=== PATIENT | female | born 1960 | race Caucasian/White ===

== ENCOUNTER → 2017-10-07 07:16 | Outpatient (CLI) | payer OTHER, BC, SELFPAY | PROVIDERS: Visit Provider Internal Medicine Adolescent Medicine ==

== ENCOUNTER → 2017-10-21 07:15 | Outpatient (CLI) | payer OTHER, BC, SELFPAY ==
[2017-10-21 07:53] LABS: Basophils % 0.5 % (0.1-2.0); Eosinophils # 0.1 K/mm3 (0.0-0.4); Eosinophils % 1.1 % (0.1-12.0); Hematocrit 44.8 % (37.0-47.0); Hemoglobin 14.7 g/dL (12.2-16.2); Lymphocytes # 2.1 K/mm3 (0.7-4.5); Lymphocytes % 32.1 K/mm3 (10-50); Mean Corpuscular HGB Conc 32.9 g/dL (31.8-35.4); Mean Corpuscular Hemoglobin 30.8 pg (27.0-31.2); Mean Corpuscular Volume 93.6 fl (81-99); Mean Platelet Volume 7.8 fl (7.4-10.4); Monocytes # 0.4 K/mm3 (0.1-1.0); Monocytes % 6.8 % (1.7-9.3); Neutrophils # 3.9 K/mm3 (1.8-7.8); Neutrophils % 59.5 % (37.0-80.0); Platelet Count 237 K/mm3 (142-424); Red Blood Count 4.79 M/mm3 (4.20-5.40); Red Cell Distribution Width 13.2 % (11.5-17.5); White Blood Count 6.5 K/mm3 (4.8-10.8)
[2017-10-21 09:04] LABS: Anion Gap 9.6 mEq/L (5-15); Blood Urea Nitrogen 15 mg/dL (7-18); Carbon Dioxide 31 mmol/L (21.0-32.0); Chloride 101 mmol/L (98-107); Chol/HDL Ratio 4.2 (1-3.5); Cholesterol 194 mg/dL (140-200); Creatinine,Serum 0.77 mg/dL (0.55-1.02); Estimated Glomerular Filt Rate 77 ml/min (>60); GFR (African American) 93 ML/MIN (>60); Glucose 91 mg/dL (74-106); HDL Cholesterol 46 mg/dL (29-89); LDL Cholesterol 114 mg/dL (0-130); Potassium 3.6 mmoL/L (3.5-5.1); Sodium 138 mmol/L (136-145); Triglycerides 170 mg/dL (30-200); VLDL Cholesterol 34 mg/dL (0-40)
[2017-10-22 11:39] LABS: Vitamin D 25 Hydroxy 31.1 ng/mL (30.0-100.0)
== END ==
PROVIDERS: Visit Provider Internal Medicine Adolescent Medicine
DX: E78.5 Hyperlipidemia, unspecified (principal); E55.9 Vitamin D deficiency, unspecified; I10 Essential (primary) hypertension; R53.83 Other fatigue
CPT/HCPCS: 36415; 80048; 80061; 82652; 85025

== ENCOUNTER → 2017-11-03 09:15 | Outpatient (CLI) | payer OTHER, BC, SELFPAY ==
--- NOTE | 2017-11-03 09:19 | MM_ITS ---
MM Dig screening mamm BI w/CAD CAD Screening ORDERING PHYSICIAN : Jeancarlos Fontaine MD PATIENT AGE: 57 years GENDER: Female INDICATION: Routine screening. Does taking female hormones. No new complaints. Family history. Maternal grandmother with breast cancer age 76 COMPARISON: Previous mammograms: April 2013, 2013, June 2015, 2015 TECHNIQUE: Standard CC and MLO images were obtained. R2 CAD reviewed. FINDINGS: Mild to moderate residual fibroglandular elements in the medial retroareolar region again noted. Visualized ductal prominence likely with Slightly nodular character of such but no significant change is evident in either breast. No dominant mass nor suspicious calcifications.. No architectural distortion. But prior films are very helpful supporting that the overall patterns are stable dating back to studies from 2012. IMPRESSION: - Stable bilateral mammogram No significant new findings. Follow-up in one year recommended BI-RADS Category: 1 Negative RECOMMENDED FOLLOW-UP: 1YR - 1 YEAR FOLLOW-UP (A letter has been sent to the patient regarding results of the study.)
== END ==
PROVIDERS: Family Provider Internal Medicine Adolescent Medicine; PCP Nurse Practitioner Obstetrics & Gynecology; Visit Provider Internal Medicine Adolescent Medicine
DX: Z12.31 Encounter for screening mammogram for malignant neoplasm of breast (principal)
CPT/HCPCS: 77067

== ENCOUNTER → 2018-04-21 07:19 | Outpatient (CLI) | payer OTHER, BC, SELFPAY ==
[2018-04-21 07:35] LABS: Basophils % 0.5 % (0.1-2.0); Eosinophils # 0.1 K/mm3 (0.0-0.4); Eosinophils % 2.4 % (0.1-12.0); Hematocrit 44.3 % (37.0-47.0); Hemoglobin 14.2 g/dL (12.2-16.2); Lymphocytes # 2.7 K/mm3 (0.7-4.5); Lymphocytes % 43.9 K/mm3 (10-50); Mean Corpuscular HGB Conc 32.1 g/dL (31.8-35.4); Mean Corpuscular Hemoglobin 29.8 pg (27.0-31.2); Mean Corpuscular Volume 92.9 fl (81-99); Mean Platelet Volume 7.9 fl (7.4-10.4); Monocytes # 0.4 K/mm3 (0.1-1.0); Monocytes % 6.4 % (1.7-9.3); Neutrophils # 2.8 K/mm3 (1.8-7.8); Neutrophils % 46.8 % (37.0-80.0); Platelet Count 276 K/mm3 (142-424); Red Blood Count 4.77 M/mm3 (4.20-5.40); Red Cell Distribution Width 13.6 % (11.5-17.5)
[2018-04-21 09:42] LABS: Chol/HDL Ratio 3.8 (1-3.5); Cholesterol 202 mg/dL (140-200); HDL Cholesterol 53 mg/dL (29-89); LDL Cholesterol 127 mg/dL (0-130); Triglycerides 112 mg/dL (30-200); VLDL Cholesterol 22 mg/dL (0-40)
[2018-04-21 09:49] LABS: Alanine Aminotransferase 37 U/L (12-78); Albumin Level 4.1 gm/dL (3.4-5.0); Albumin/Globulin Ratio 1.2 (1.1-1.8); Alkaline Phosphatase 55 U/L (46-116); Anion Gap 9.6 mEq/L (5-15); Aspartate Amino Transferase 22 U/L (15-37); Bilirubin,Total 0.6 mg/dL (0.2-1.0); Blood Urea Nitrogen 14 mg/dL (7-18); Calcium 9.3 mg/dL (8.5-10.1); Carbon Dioxide 31 mmol/L (21.0-32.0); Chloride 100 mmol/L (98-107); Creatinine,Serum 0.77 mg/dL (0.55-1.02); Estimated Glomerular Filt Rate 76 ml/min (>60); GFR (African American) 93 ML/MIN (>60); Globulin 3.5 gm/dl (1.3-3.2); Glucose 89 mg/dL (74-106); Potassium 3.6 mmoL/L (3.5-5.1); Sodium 137 mmol/L (136-145); Total Protein,Serum 7.6 gm/dL (6.4-8.2)
== END ==
PROVIDERS: PCP Internal Medicine Adolescent Medicine; Visit Provider Internal Medicine Adolescent Medicine
DX: E78.5 Hyperlipidemia, unspecified (principal); E55.9 Vitamin D deficiency, unspecified
CPT/HCPCS: 36415; 80053; 80061; 82652; 85025

== ENCOUNTER → 2018-09-22 07:19 | Outpatient (CLI) | payer OTHER, BC, SELFPAY ==
[2018-09-22 08:20] LABS: Alanine Aminotransferase 36 U/L (12-78); Albumin Level 3.9 gm/dL (3.4-5.0); Albumin/Globulin Ratio 1.2 (1.1-1.8); Alkaline Phosphatase 57 U/L (46-116); Anion Gap 12.8 mEq/L (5-15); Aspartate Amino Transferase 19 U/L (15-37); Bilirubin,Total 0.6 mg/dL (0.2-1.0); Blood Urea Nitrogen 15 mg/dL (7-18); Calcium 9.3 mg/dL (8.5-10.1); Carbon Dioxide 29 mmol/L (21.0-32.0); Chloride 100 mmol/L (98-107); Chol/HDL Ratio 3.5 (1-3.5); Cholesterol 194 mg/dL (140-200); Creatinine,Serum 0.83 mg/dL (0.55-1.02); Estimated Glomerular Filt Rate 70 ml/min (>60); GFR (African American) 85 ML/MIN (>60); Globulin 3.3 gm/dl (1.3-3.2); Glucose 92 mg/dL (74-106); HDL Cholesterol 55 mg/dL (29-89); LDL Cholesterol 118 mg/dL (0-130); Potassium 3.8 mmoL/L (3.5-5.1); Sodium 138 mmol/L (136-145); Total Protein,Serum 7.2 gm/dL (6.4-8.2); Triglycerides 103 mg/dL (30-200); VLDL Cholesterol 21 mg/dL (0-40)
[2018-09-22 08:24] LABS: Basophils % 0.6 % (0.1-2.0); Eosinophils # 0.1 K/mm3 (0.0-0.4); Eosinophils % 1.8 % (0.1-12.0); Hematocrit 44.9 % (37.0-47.0); Hemoglobin 14.6 g/dL (12.2-16.2); Lymphocytes # 2.2 K/mm3 (0.7-4.5); Lymphocytes % 32.5 % (10-50); Mean Corpuscular HGB Conc 32.4 g/dL (31.8-35.4); Mean Corpuscular Hemoglobin 30.3 pg (27.0-31.2); Mean Corpuscular Volume 93.4 fl (81-99); Mean Platelet Volume 7.3 fl (7.4-10.4); Monocytes # 0.4 K/mm3 (0.1-1.0); Monocytes % 6.5 % (1.7-9.3); Neutrophils % 58.7 % (37.0-80.0); Platelet Count 246 K/mm3 (142-424); Red Blood Count 4.81 M/mm3 (4.20-5.40); Red Cell Distribution Width 13.4 % (11.5-17.5); White Blood Count 6.8 K/mm3 (4.8-10.8)
[2018-09-23 12:37] LABS: Vitamin D 25 Hydroxy 32.2 ng/mL (30.0-100.0)
== END ==
PROVIDERS: Visit Provider Internal Medicine Adolescent Medicine
DX: E78.5 Hyperlipidemia, unspecified (principal); E55.9 Vitamin D deficiency, unspecified
CPT/HCPCS: 36415; 80053; 80061; 82652; 85025

== ENCOUNTER → 2018-11-07 08:24 | Outpatient (CLI) | payer OTHER, BC, SELFPAY ==
--- NOTE | 2018-11-07 08:30 | MM_ITS ---
MM Dig screening mamm BI w/CAD CAD Screening COMPARISON: Digital mammograms with CAD 11/03/2017 and 07/10/2016 INDICATION: There is a history of breast cancer patient maternal grandmother diagnosed after menopause. TECHNIQUE: Standard CC and MLO images were obtained. R2 CAD reviewed. FINDINGS: The breasts are composed primarily of fat with minimal fibroglandular densities in the subareolar regions bilaterally. There is no new or suspicious lesion in either breast and there are no suspicious microcalcifications. IMPRESSION: Stable exam with no suspicious lesion seen BI-RADS Category: 1 Negative RECOMMENDED FOLLOW-UP: 1YR - 1 YEAR FOLLOW-UP (A letter has been sent to the patient regarding results of the study.)
== END ==
PROVIDERS: PCP Internal Medicine Adolescent Medicine; Visit Provider Internal Medicine Adolescent Medicine
DX: Z12.31 Encounter for screening mammogram for malignant neoplasm of breast (principal)
CPT/HCPCS: 77067

== ENCOUNTER → 2018-12-14 12:53 | Outpatient (POV) | payer OTHER, BC, SELFPAY | DX: Z00.00 Encounter for general adult medical examination without abnormal findings (principal) ==

== ENCOUNTER → 2019-01-16 10:37 | Outpatient (CLI) | payer OTHER, BC, SELFPAY ==
--- NOTE | 2019-01-16 10:39 | MR_ITS ---
MR shoulder LT wo con HISTORY: ITS.REASON: ROTATOR CUFF SYNDROME OF LEFT SHOULDER ORDERING PHYSICIAN: Jeancarlos Fontaine MD PATIENT AGE: 58 years Comparison: None TECHNIQUE: Standard multiplanar multiecho sequences are performed without contrast. FINDINGS: Alignment and signal from the osseous marrow elements are normal. There is fluid in the subacromial and subdeltoid bursae. There is a small subchondral degenerative cyst along the greater tubercle. There is severe irregular thinning of the supraspinatus tendon. This abnormal appearance is at least 1.6 cm in length and begins at the level of the greater tubercle and extends to the lateral margin of the acromion process. Labrum is probably intact. Signal from the surrounding muscles appear normal. 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 Degenerative changes at the greater tubercle.
== END ==
PROVIDERS: PCP Internal Medicine Adolescent Medicine; Visit Provider Internal Medicine Adolescent Medicine
DX: M75.102 Unspecified rotator cuff tear or rupture of left shoulder, not specified as traumatic (principal)
CPT/HCPCS: 73221

== ENCOUNTER → 2019-02-09 14:58 | Outpatient (CLI) | payer OTHER, BC, SELFPAY ==
--- NOTE | 2019-02-09 15:01 | XR_ITS ---
XR shoulder LT min 2V HISTORY: ITS.REASON: Shoulder pain ORDERING PHYSICIAN: Sonja Grajeda MD PATIENT AGE: 58 years Comparison: None FINDINGS: There are mild osteoarthritic changes of the glenohumeral joint and acromioclavicular joint. There is a faint lucency along the superior aspect of the glenoid possibly related to mock line from an osteophyte. No acute fracture or dislocation. No significant subacromial stenosis. IMPRESSION: Osteoarthritic change, no acute finding
== END ==
PROVIDERS: PCP Internal Medicine Adolescent Medicine; Visit Provider Orthopaedic Surgery
DX: M25.512 Pain in left shoulder (principal)
CPT/HCPCS: 73030

== ENCOUNTER → 2019-02-16 07:09 | Outpatient (CLI) | payer OTHER, BC, SELFPAY ==
[2019-02-16 07:33] LABS: Basophils % 0.6 % (0.1-2.0); Eosinophils # 0.1 K/mm3 (0.0-0.4); Eosinophils % 1.9 % (0.1-12.0); Hematocrit 42.7 % (37.0-47.0); Hemoglobin 13.4 g/dL (12.2-16.2); Lymphocytes # 2.4 K/mm3 (0.7-4.5); Lymphocytes % 41.1 % (10-50); Mean Corpuscular HGB Conc 31.3 g/dL (31.8-35.4); Mean Corpuscular Volume 89.4 fl (81-99); Mean Platelet Volume 7.8 fl (7.4-10.4); Monocytes # 0.5 K/mm3 (0.1-1.0); Monocytes % 8.6 % (1.7-9.3); Neutrophils # 2.8 K/mm3 (1.8-7.8); Neutrophils % 47.8 % (37.0-80.0); Platelet Count 265 K/mm3 (142-424); Red Blood Count 4.77 M/mm3 (4.20-5.40); Red Cell Distribution Width 12.8 % (11.5-17.5); White Blood Count 5.8 K/mm3 (4.8-10.8)
[2019-02-16 07:56] LABS: Activated Partial Thrombo Time 31.5 seconds (23.6-34.0); INR 1.07 (0.9-1.1); Prothrombin Time 11.1 seconds (9.4-11.8)
[2019-02-16 08:48] LABS: Alanine Aminotransferase 38 U/L (12-78); Albumin Level 3.7 gm/dL (3.4-5.0); Albumin/Globulin Ratio 1.1 (1.1-1.8); Alkaline Phosphatase 56 U/L (46-116); Anion Gap 7.4 mEq/L (5-15); Aspartate Amino Transferase 18 U/L (15-37); Bilirubin,Total 0.5 mg/dL (0.2-1.0); Blood Urea Nitrogen 15 mg/dL (7-18); Calcium 9.4 mg/dL (8.5-10.1); Carbon Dioxide 33 mmol/L (21.0-32.0); Chloride 101 mmol/L (98-107); Creatinine,Serum 0.88 mg/dL (0.55-1.02); Estimated Glomerular Filt Rate 66 ml/min (>60); GFR (African American) 79 ML/MIN (>60); Globulin 3.5 gm/dl (1.3-3.2); Glucose 92 mg/dL (74-106); Potassium 3.4 mmoL/L (3.5-5.1); Sodium 138 mmol/L (136-145); Total Protein,Serum 7.2 gm/dL (6.4-8.2)
== END ==
PROVIDERS: Visit Provider Orthopaedic Surgery
DX: Z01.818 Encounter for other preprocedural examination (principal); M75.102 Unspecified rotator cuff tear or rupture of left shoulder, not specified as traumatic
CPT/HCPCS: 36415; 80053; 85025; 85610; 85730; 93005

== ENCOUNTER → 2019-03-30 07:04 | Outpatient (CLI) | payer OTHER, BC, SELFPAY ==
[2019-03-30 07:19] LABS: Basophils % 0.4 % (0.1-2.0); Eosinophils # 0.1 K/mm3 (0.0-0.4); Eosinophils % 1.8 % (0.1-12.0); Hematocrit 42.3 % (37.0-47.0); Hemoglobin 13.7 g/dL (12.2-16.2); Lymphocytes # 1.8 K/mm3 (0.7-4.5); Lymphocytes % 30.5 % (10-50); Mean Corpuscular HGB Conc 32.5 g/dL (31.8-35.4); Mean Corpuscular Volume 92.4 fl (81-99); Mean Platelet Volume 7.2 fl (7.4-10.4); Monocytes # 0.4 K/mm3 (0.1-1.0); Monocytes % 6.9 % (1.7-9.3); Neutrophils # 3.6 K/mm3 (1.8-7.8); Neutrophils % 60.4 % (37.0-80.0); Platelet Count 274 K/mm3 (142-424); Red Blood Count 4.57 M/mm3 (4.20-5.40); Red Cell Distribution Width 13.3 % (11.5-17.5)
[2019-03-30 09:42] LABS: Alanine Aminotransferase 36 U/L (12-78); Albumin Level 4.1 gm/dL (3.4-5.0); Albumin/Globulin Ratio 1.2 (1.1-1.8); Alkaline Phosphatase 57 U/L (46-116); Anion Gap 10.4 mEq/L (5-15); Aspartate Amino Transferase 17 U/L (15-37); Bilirubin,Total 0.5 mg/dL (0.2-1.0); Blood Urea Nitrogen 14 mg/dL (7-18); Calcium 9.4 mg/dL (8.5-10.1); Carbon Dioxide 32 mmol/L (21.0-32.0); Chloride 100 mmol/L (98-107); Chol/HDL Ratio 3.7 (1-3.5); Cholesterol 178 mg/dL (140-200); Creatinine,Serum 0.75 mg/dL (0.55-1.02); Estimated Glomerular Filt Rate 79 ml/min (>60); GFR (African American) 95 ML/MIN (>60); Globulin 3.4 gm/dl (1.3-3.2); Glucose 92 mg/dL (74-106); HDL Cholesterol 48 mg/dL (29-89); LDL Cholesterol 92 mg/dL (0-130); Potassium 3.4 mmoL/L (3.5-5.1); Sodium 139 mmol/L (136-145); Total Protein,Serum 7.5 gm/dL (6.4-8.2); Triglycerides 189 mg/dL (30-200); VLDL Cholesterol 38 mg/dL (0-40)
[2019-03-31 11:46] LABS: Vitamin D 25 Hydroxy 30.4 ng/mL (30.0-100.0)
== END ==
PROVIDERS: Visit Provider Internal Medicine Adolescent Medicine
DX: E78.5 Hyperlipidemia, unspecified (principal); E55.9 Vitamin D deficiency, unspecified
CPT/HCPCS: 36415; 80053; 80061; 82652; 85025

== ENCOUNTER → 2019-05-12 09:20 | Outpatient (CLI) | payer OTHER, BC, SELFPAY ==
--- NOTE | 2019-05-12 09:36 | XR_ITS ---
PROCEDURE: XR SHOULDER LT MIN 2V CLINICAL INDICATION: lt shoulder sx fu history of supraspinatus tendon tear COMPARISON: MRI scan left shoulder 01/16/2019 FINDINGS: Surgical anchors are seen overlying the humeral head secondary to the previous rotator cuff surgery. There is a depression of the posterior lateral humeral head consistent with a Hill-Sachs lesion, has a been previous anterior dislocation of the shoulder? The clavicle is intact and the AC joint appears grossly normal. There are no soft tissue calcifications. IMPRESSION: Postsurgical changes and Hill-Sachs lesion as noted Dictated by: Dr. Martinez De La Fuente MD 05/12/2019 10:[address] Martinez De La Fuente MD in [place] 05/12/2019 10:24
== END ==
PROVIDERS: PCP Internal Medicine Adolescent Medicine; Visit Provider Orthopaedic Surgery
DX: M19.012 Primary osteoarthritis, left shoulder (principal)
CPT/HCPCS: 73030

== ENCOUNTER → 2019-06-09 10:58 | Outpatient (CLI) | payer OTHER, BC, SELFPAY ==
--- NOTE | 2019-06-09 11:20 | MR_ITS ---
PROCEDURE: MR SHOULDER LT WO CON CLINICAL INDICATION: Post Op shoulder pain Left shoulder pain with limited range of motion. Prior rotator cuff repair and biceps surgery XR SHOULDER LT MIN 2V from 05/12/2019 TECHNIQUE: Routine multiplanar multi echo sequences are performed without gadolinium enhancement. FINDINGS: Postsurgical changes are present with extensive susceptibility artifact from micro metallic fragments. Artifact is also present from the anchors within the humeral head. The artifact limits the exam. There is diffuse increased T2 signal of the supraspinatus tendon. There may be a few fibers intact. Cannot exclude the possibility of a retear. MR arthrogram may provide further evaluation if clinically desired. There is a moderate size shoulder joint effusion. There is fluid also present in the subdeltoid region. The labral appear intact. Bicipital tendon appears in place. The infraspinatus, subscapularis, and teres minor tendons appear intact. IMPRESSION: Extensive artifact from the postsurgical changes. There is diffuse edema of the supraspinatus tendon. Cannot exclude a retear of the supraspinatus tendon. MR arthrogram may provide further evaluation. Shoulder joint effusion Dictated by: Ezekiel Caro MD 06/10/2019 06:44 Electronically signed by Ezekiel Caro MD in [place] 06/15/2019 04:53
== END ==
PROVIDERS: PCP Internal Medicine Adolescent Medicine; Visit Provider Orthopaedic Surgery
DX: M19.012 Primary osteoarthritis, left shoulder (principal); M75.100 Unspecified rotator cuff tear or rupture of unspecified shoulder, not specified as traumatic; M75.20 Bicipital tendinitis, unspecified shoulder
CPT/HCPCS: 73221

== ENCOUNTER 2019-06-12 11:00 | Outpatient (RCR) | payer OTHER, BC, SELFPAY ==
--- NOTE | 2019-02-28 11:50 | HMH.OTOPEV ---
OT Inpatient Evaluation Rehab OT Outpatient Eval Start: 02/28/19 11:30 Freq: Status: Active Protocol: Document 02/28/19 11:31 RMMADI (Rec: 02/28/19 11:49 [facility] [id number][facility] Electronically Signed By Serafin Willson OT 02/28/19 11:31 Outpatient Therapy Subjective History Subjective History Pt is a 58 year old female who reports to therapy for initial evaluation to left shoulder. Pt had surgery on to repair rotator cuff and address acromioclavicular arthrosis. Pt reports her pain began years ago and she believes it is from repetitive use at her job. Pt will continue to be seen in order to address shoulder deficits. PROM Goals STG 6 weeks Flex: 130 degrees Abd: 130 degrees ER: 60 degrees IR: 60 degrees PROM Goals LTG 12 weeks Flex: 160 degrees Abd: 160 degrees ER: 80 degrees IR: 80 degrees Chief Complaint Pain,Stiff,Weakness Symptom Type Ache,Throb,Sharp,Dull,Stabbing ,Burning,Numbness,Tingling, Shooting Symptoms Relieved By Nothing Symptoms Aggravated By Physical Activity,Lifting Prior Functional Limitations None Current Functional Limitations Reaching,Lifting,Housework, Dressing,Desk Work/Reading, Driving,Sleeping,Recreation Activity,Bending/Stooping Symptom Description Constant and Continuous Level of pain today (0-10) 2 Pain scale - at its best (0-10) 2 Pain scale - at its worst (0-10) 6 Shoulder/Elbow Eval Shoulder Objective Measurements Shoulder ROM Left Shoulder Abduction Passive Range of 100 degrees Motion (degrees) Shoulder Flexion Passive Range of Motion 100 degrees (degrees) Shoulder External Rotation Passive Range 20 degrees of Motion (degrees) Shoulder Internal Rotation Passive Range 40 degrees of Motion (degrees) pain with active ROM shoulder exam left standard pain with passive ROM shoulder exam left standard decreased ROM shoulder exam standard left full ROM shoulder exam standard right Elbow O
--- NOTE | 2019-04-10 09:57 | HMH.RHREAS ---
Rehab Reassessment Rehab OP Re-assessment Start: 04/10/19 08:36 Freq: Status: Active Protocol: Document 04/10/19 08:59 DORIAN (Rec: 04/10/19 09:57 DORIAN [id number]) Electronically Signed By Serafin Willson OT 04/10/19 08:59 Rehab Re-assessment Subjective Subjective I hope I am progressing like I am supposed to. Objective Objective Notes Pt continues to be seen 1-2x's a week in order to engage in PROM manual stretching to left shoulder and AAROM exercises. Pt is currently at 6 weeks post op. Pt also receives modalities such as ice and e- stim to decrease pain/ inflammation. Assessment Progress Assessment Progressing as Expected Assessment Notes Pt is advancing well with therapy. AROM exercises have not been initiated yet due to following RTC protocol per doctor's orders. Pt will begin AROM exercises next week . AROM L Shoulder Flex: 50 degrees Abd: 65 degrees ER: 0 degrees IR: 0 degrees PROM L Shoulder Current Flex: 130 degrees Abd: 145 degrees ER: 60 degrees IR: 60 degrees Patient goals met N/A Goals Not Met STG and LTG Revised Goals Continue progressing towards STG and LTG written on initial evaluation. Plan Plan Continue with OT plan of care at this time. Frequency of Therapy 2x's a week Duration of therapy 6-8 more weeks Time and Billing Re-Eval Time 15 Re-Eval Billing Units 1 PHYSICIAN CERTIFICATION: I certify the specified therapy services for Zora Bloom are required, authorized, and reviewed every 30 days.
--- NOTE | 2019-05-15 10:35 | HMH.RHREAS ---
Rehab Reassessment Rehab OP Re-assessment Start: 04/10/19 08:36 Freq: Status: Active Protocol: Document 05/15/19 10:20 DORIAN (Rec: 05/15/19 10:34 [facility] [id number]) Electronically Signed By Serafin Willson OT 05/15/19 10:20 Rehab Re-assessment Subjective Subjective I just want it to be better. Objective Objective Notes Pt continues to be seen twice a week in order to address left shoulder deficits. Pt completes AROM and AAROM exercises. Pt recently started strengthening exercises as well. Pt is also passively ranged in flexion, abduction, ER, and IR while supine on mat. Pt does receive IFC e-stim and ice in order to decrease pain/ inflammation. Assessment Progress Assessment Progressing as Expected Assessment Notes Pt is advancing well at this time. Pt does have full PROM while being stretched. AROM have been initiated, but pt's motion continues to be limited . Strengthening was recently started. Therapist believes patient's active motion will improve once the arm becomes stronger. AROM L Shoulder Flex: 95 degrees Abd: 100 degrees ER: 55 degrees IR: 50 degrees Patient goals met N/A Goals Not Met STG and LTG Revised Goals Continue progressing towards STG and LTG written on initial evaluation. Plan Plan Continue with OT plan of care at this time. Frequency of Therapy 2x's a week Duration of therapy 6 more weeks Time and Billing Re-Eval Time 15 Re-Eval Billing Units 1 PHYSICIAN CERTIFICATION: I certify the specified therapy services for Zora Bloom are required, authorized, and reviewed every 30 days.
== END 2019-06-12 11:05 | disposition home or self-care (01) ==
LOC: OT 11:00
PROVIDERS: PCP Internal Medicine Adolescent Medicine; Visit Provider Orthopaedic Surgery
DX: S46.012A Strain of muscle(s) and tendon(s) of the rotator cuff of left shoulder, initial encounter (principal)
CPT/HCPCS: 97014; 97110; 97140; 97164; 97166; 97168; 97763; G0283

== ENCOUNTER → 2019-06-30 07:46 | Outpatient (CLI) | payer OTHER, BC, SELFPAY ==
--- NOTE | 2019-06-30 07:47 | MR_ITS ---
PROCEDURE: MR SHOULDER RT WO CON CLINICAL INDICATION: ROTATOR CUFF SYNDROME OF RIGHT SHOULDER Right shoulder pain with limited range of motion COMPARISON: No exams were available for comparison TECHNIQUE: Routine multiplanar multi echo sequences are performed without gadolinium enhancement. FINDINGS: Osteoarthritic changes are present at the acromioclavicular joint with osteophyte formation and subacromial stenosis with low-lying acromion. There is complete tear of the supraspinatus tendon with mild retraction of the musculotendinous fibers. There is tendinopathy/tendinosis of the infraspinatus tendon. The subscapularis and teres minor tendons are intact. Cortical regularity involves the humeral head laterally and at the greater tuberosity. The humeral head is slightly high-riding in the glenoid fossa. No obvious labral tear. Bicipital tendon is in place. There are osteoarthritic changes of the glenohumeral joint with small shoulder joint effusion IMPRESSION: 1. Complete tear of the supraspinatus tendon with mild retraction of the musculotendinous fibers. 2. Osteoarthritic change of the AC joint with bony hypertrophy and subacromial stenosis Dictated by: Ezekiel Caro MD 07/01/2019 09:25 Electronically signed by Ezekiel Caro MD in [place] 07/01/2019 09:25
== END ==
PROVIDERS: PCP Internal Medicine Adolescent Medicine; Visit Provider Internal Medicine Adolescent Medicine
DX: M75.101 Unspecified rotator cuff tear or rupture of right shoulder, not specified as traumatic (principal)
CPT/HCPCS: 73221

== ENCOUNTER → 2019-09-25 08:25 | Outpatient (CLI) | payer BC, SELFPAY ==
[2019-09-25 09:10] LABS: Basophils % 0.4 % (0.1-2.0); Eosinophils # 0.1 K/mm3 (0.0-0.4); Eosinophils % 1.4 % (0.1-12.0); Hematocrit 43.6 % (37.0-47.0); Hemoglobin 14.4 g/dL (12.2-16.2); Lymphocytes # 1.8 K/mm3 (0.7-4.5); Lymphocytes % 30.2 % (10-50); Mean Corpuscular HGB Conc 33.1 g/dL (31.8-35.4); Mean Corpuscular Hemoglobin 30.5 pg (27.0-31.2); Mean Corpuscular Volume 92.2 fl (81-99); Mean Platelet Volume 7.3 fl (7.4-10.4); Monocytes # 0.4 K/mm3 (0.1-1.0); Monocytes % 6.4 % (1.7-9.3); Neutrophils # 3.6 K/mm3 (1.8-7.8); Neutrophils % 61.5 % (37.0-80.0); Platelet Count 322 K/mm3 (142-424); Red Blood Count 4.73 M/mm3 (4.20-5.40); Red Cell Distribution Width 13.2 % (11.5-17.5); White Blood Count 5.8 K/mm3 (4.8-10.8)
[2019-09-25 09:49] LABS: Chloride 97 mmol/L (98-107); Potassium 3.8 mmoL/L (3.5-5.1); Sodium 136 mmol/L (136-145)
[2019-09-25 09:51] LABS: Blood Urea Nitrogen 11 mg/dl (7-17); Estimated Glomerular Filt Rate 85 ml/min (>60); GFR (African American) 103 ML/MIN (>60)
[2019-09-25 09:52] LABS: Alanine Aminotransferase 42 U/L (12-78); Albumin Level 4.7 g/dl (3.5-5.0); Albumin/Globulin Ratio 1.6 (1.1-1.8); Alkaline Phosphatase 54 U/L (38-126); Anion Gap 11.8 mEq/L (5-15); Aspartate Amino Transferase 33 U/L (14-36); Bilirubin,Total 0.5 mg/dl (0.2-1.3); Calcium 10.4 mg/dl (8.4-10.2); Carbon Dioxide 31 mmol/L (22.0-30.0); Chol/HDL Ratio 3.1 (1-3.5); Cholesterol 178 mg/dl (140-200); Globulin 2.9 g/dL (1.3-3.2); Glucose 95 mg/dl (74-100); HDL Cholesterol 58 mg/dl (40-60); Total Protein,Serum 7.6 g/dl (6.3-8.2); Triglycerides 126 mg/dl (30-150); VLDL Cholesterol 25 mg/dL (0-40)
[2019-09-25 10:04] LABS: Direct LDL Cholesterol 104.34 mg/dL (100-129)
[2019-09-26 13:10] LABS: Vitamin D 25 Hydroxy 32.1 ng/mL (30.0-100.0)
== END ==
PROVIDERS: Visit Provider Internal Medicine Adolescent Medicine
DX: E78.5 Hyperlipidemia, unspecified (principal); E55.9 Vitamin D deficiency, unspecified
CPT/HCPCS: 36415; 80053; 80061; 82652; 85025

== ENCOUNTER → 2019-10-27 08:29 | Outpatient (CLI) | payer BC, SELFPAY ==
--- NOTE | 2019-10-27 08:33 | XR_ITS ---
PROCEDURE: XR SHOULDER LT MIN 2V CLINICAL INDICATION: left shoulder sp rotator cuff Pain decreased range of motion COMPARISON: XR SHOULDER LT MIN 2V from 05/12/2019 FINDINGS: There is mild demineralization. No acute fracture or dislocation is apparent. Some depression of the posterior lateral humeral head consistent with Hill-Sachs lesion is again noted finding similar to previous exam. There are separate metallic postsurgical pins in the humeral head. Mild acromioclavicular arthropathy is noted. IMPRESSION: No acute findings. Postsurgical changes as described. Dictated by: Nitish New 10/27/2019 09:03 Electronically signed by Nitish New in [place] 10/27/2019 09:03
== END ==
PROVIDERS: PCP Internal Medicine Adolescent Medicine; Visit Provider Orthopaedic Surgery
DX: M75.22 Bicipital tendinitis, left shoulder (principal); M75.120 Complete rotator cuff tear or rupture of unspecified shoulder, not specified as traumatic; M19.019 Primary osteoarthritis, unspecified shoulder; Z98.890 Other specified postprocedural states
CPT/HCPCS: 73030

== ENCOUNTER 2020-01-17 08:00 | Outpatient (RCR) | payer BC, SELFPAY ==
--- NOTE | 2019-09-11 10:42 | HMH.OTOPEV ---
OT Inpatient Evaluation Rehab OT Outpatient Eval Start: 09/11/19 10:17 Freq: Status: Active Protocol: Document 09/11/19 10:17 [facility] (Rec: 09/11/19 10:40 [facility] [id number]) Electronically Signed By Serafin Willson OT 09/11/19 10:17 Outpatient Therapy Subjective History Subjective History Pt is a 59 year old female who reports to therapy for evaluation to L shoulder. Pt was seen previously for RTC repair of L shoulder. Pt re- tore L shoulder and required a second surgery. August 01, 2019 pt had a L RTC revision. Today, pt demonstrates with decreased PROM and will continue to be seen weekly in order to increase overal functional use of L shoulder. Chief Complaint Pain,Stiff,Weakness Symptom Type Ache,Throb Symptoms Relieved By Rest/Positioning Symptoms Aggravated By Physical Activity,Twisting, Lifting Prior Functional Limitations None Current Functional Limitations Reaching,Lifting,Housework, Dressing,Desk Work/Reading, Driving,Sleeping,Recreation Activity Symptom Description Intermittent Level of pain today (0-10) 1 Pain scale - at its best (0-10) 1 Pain scale - at its worst (0-10) 7 Shoulder/Elbow Eval Shoulder Objective Measurements Shoulder ROM Left Shoulder Abduction Passive Range of 100 degrees Motion (degrees) Shoulder Flexion Passive Range of Motion 90 degrees (degrees) Shoulder External Rotation Passive Range 20 degrees of Motion (degrees) Shoulder Internal Rotation Passive Range 20 degrees of Motion (degrees) pain with active ROM shoulder exam left standard pain with passive ROM shoulder exam left standard decreased ROM shoulder exam standard left Shoulder MMT Shoulder Abduction Strength Grade 3- Fair- Shoulder Extension Strength Grade 3- Fair- Shoulder Flexion Strength Grade 3- Fair- Shoulder External Rotation Strength 3- Fair- Grade Shoulder Internal Rotation Strength 3- Fair- Grade Shoulder Strength Patient Testing Sitting Position Elbow Objective Measurements OT Outpatient Assessment Impairments Problems/Impairments Palpation Tenderness,Impaired Range of Motion,Impaired
--- NOTE | 2019-10-09 09:38 | HMH.RHREAS ---
Rehab Reassessment Rehab OP Re-assessment Start: 10/09/19 08:19 Freq: Status: Active Protocol: Document 10/09/19 08:19 DORIAN (Rec: 10/09/19 09:38 DORIAN [id number]) Electronically Signed By Serafin Willson OT 10/09/19 08:19 Rehab Re-assessment Subjective Subjective I hope it all gets better soon. Objective Objective Notes Pt continues to be seen twice a week in order to address L shoulder deficits. Each session pt engages in L shoulder AROM/AAROM/ Strengthening exercises. Pt is also passively ranged in supine in all planes at left shoulder. Pt does receive modalities such as e-stim in order to decrease pain/ inflammation. Assessment Progress Assessment Slower Than Expected Assessment Notes Pt demonstrates improvement with PROM, but is still significantly impaired with AROM. Pt reports she still feels very stiff , but claims she is consistent with completing HEP daily. Current PROM L shoulder Flex: 120 degrees Abd: 130 degrees ER: 70 degrees IR: 70 degrees Current AROM L shoulder Flex: 75 degrees Abd: 75 degrees ER: 40 degrees IR: 40 degrees Patient goals met N/A Goals Not Met STG and LTG Revised Goals Continue progressing towards all STG and LTG Plan Plan Continue with OT plan of care Frequency of Therapy 2x's a week Duration of therapy 6 more weeks Time and Billing Re-Eval Time 15 Re-Eval Billing Units 1 PHYSICIAN CERTIFICATION: I certify the specified therapy services for Zora Bloom are required, authorized, and reviewed every 30 days.
--- NOTE | 2019-11-06 09:10 | HMH.RHREAS ---
Rehab Reassessment Rehab OP Re-assessment Start: 10/09/19 08:19 Freq: Status: Active Protocol: Document 11/06/19 07:57 DORIAN (Rec: 11/06/19 09:09 KRISHL [id number]) Electronically Signed By Serafin Willson OT 11/06/19 07:57 Rehab Re-assessment Subjective Subjective I just feel like I can't get past a certain point. Objective Objective Notes Pt continues to be seen twice a week in order to address L shoulder deficits. Each session pt engages in L shoulder AROM/AAROM/ Strengthening exercises. Pt is also passively ranged in supine in all planes at left shoulder. Pt does receive modalities such as e-stim in order to decrease pain/ inflammation. Assessment Progress Assessment Slower Than Expected Assessment Notes Pt demonstrates improvement with PROM. Minimal improvement is shown with AROM Current PROM L shoulder Flex: 160 degrees Abd: 150 degrees ER: 80 degrees IR: 80 degrees Current AROM L shoulder Flex: 90 degrees Abd: 90 degrees ER: 50 degrees IR: 75 degrees Patient goals met N/A Goals Not Met STG and LTG Revised Goals Continue progressing towards all STG and LTG Plan Plan Continue with OT plan of care Frequency of Therapy 2x's a week Duration of therapy 6 more weeks Time and Billing Re-Eval Time 15 Re-Eval Billing Units 1 PHYSICIAN CERTIFICATION: I certify the specified therapy services for Zora Bloom are required, authorized, and reviewed every 30 days.
--- NOTE | 2019-11-29 10:44 | HMH.RHREAS ---
Rehab Reassessment Rehab OP Re-assessment Start: 10/09/19 08:19 Freq: Status: Active Protocol: Document 11/29/19 10:30 RMARSHALL (Rec: 11/29/19 10:44 RMARSHALL [id number]) Electronically Signed By Serafin Willson OT 11/29/19 10:30 Rehab Re-assessment Subjective Subjective Pt's physician requesting to continue therapy. Objective Objective Notes Pt continues to be seen twice a week in order to address L shoulder deficits. Each session pt engages in L shoulder AROM/AAROM/ Strengthening exercises. Pt is also passively ranged in supine in all planes at left shoulder. Pt does receive modalities such as e-stim in order to decrease pain/ inflammation. Assessment Progress Assessment Slower Than Expected Assessment Notes Pt demonstrates improvement with PROM. Pt's PROM is within normal limits. However , pt continues to be significantly limited with AROM and strength at left shoulder. Pt has not reached functional limits in these two areas and is still having difficulty completing activities of daily living. Current PROM L shoulder Flex: 160 degrees Abd: 150 degrees ER: 80 degrees IR: 80 degrees Current AROM/ MMT Strength L shoulder Flex: 90 degrees; 4- Abd: 90 degrees; 4- ER: 50 degrees; 4- IR: 75 degrees ; 4- Patient goals met Pt has met the following short term goals: Pt's strength goal of 4,4/5 throughout the shoulder motions Pt is able to tolerate L shoulder exercises for 30 minutes prior to rest, which demonstrates ability to complete certain activities of
--- NOTE | 2019-12-06 10:50 | HMH.RHREAS ---
Rehab Reassessment Rehab OP Re-assessment Start: 10/09/19 08:19 Freq: Status: Active Protocol: Document 12/06/19 10:41 RMARSHALL (Rec: 12/06/19 10:50 RMARSHALL [id number]) Electronically Signed By Serafin Willson OT 12/06/19 10:41 Rehab Re-assessment Subjective Subjective Pt's physician requesting to continue therapy in order to increase overal functional use of LUE in activities of daily activity. Objective Objective Notes Pt continues to be seen twice a week in order to address L shoulder deficits. Each session pt engages in L shoulder AROM/AAROM/ Strengthening exercises. Pt is also passively ranged in supine in all planes at left shoulder. Pt does receive modalities such as e-stim in order to decrease pain/ inflammation. Therapist completed the Quick Dash on 11/27/19 and pt scored a 47.7/100. This demonstrates pt continues to be significantly impaired in everyday activities due to LUE deficits. Assessment Progress Assessment Slower Than Expected Assessment Notes Pt demonstrates improvement with PROM. Pt's PROM is within normal limits. However , pt continues to be significantly limited with AROM and strength at left shoulder. Pt has not reached functional limits in these two areas and is still having difficulty completing activities of daily living. Current PROM L shoulder Flex: 160 degrees Abd: 150 degrees ER: 80 degrees IR: 80 degrees Current AROM/ MMT Strength L shoulder Flex: 90 degrees; 4- Abd: 90 degrees; 4- ER: 50 degrees; 4- IR: 75 degrees ; 4- Patient go
== END 2020-01-17 08:05 | disposition home or self-care (01) ==
LOC: OT 08:00
PROVIDERS: PCP Internal Medicine Adolescent Medicine; Visit Provider Orthopaedic Surgery
DX: M75.102 Unspecified rotator cuff tear or rupture of left shoulder, not specified as traumatic (principal)
CPT/HCPCS: 97014; 97110; 97140; 97164; 97166; G0283

== ENCOUNTER → 2020-03-14 07:07 | Outpatient (CLI) | payer BC, SELFPAY ==
--- NOTE | 2020-03-14 07:25 | ECG_ITS ---
APPROVED REPORT Exam: Resting ECG HR:84 bpm ECG Measurements Heart Rate 84 AXES NV 152 P 69 QRSd 100 QRS 53 QT 368 T 52 QTc 434 <Conclusion> Normal sinus rhythm Normal ECG Electronically signed by : Jeancarlos Fontaine, 03/15/2020 07:12:54
[2020-03-14 07:31] LABS: Basophils % 0.7 % (0.1-2.0); Eosinophils # 0.1 K/mm3 (0.0-0.4); Eosinophils % 1.6 % (0.1-12.0); Hematocrit 45.9 % (37.0-47.0); Hemoglobin 15.4 g/dL (12.2-16.2); Lymphocytes # 1.9 K/mm3 (0.7-4.5); Lymphocytes % 32.1 % (10-50); Mean Corpuscular HGB Conc 33.5 g/dL (31.8-35.4); Mean Corpuscular Hemoglobin 31.2 pg (27.0-31.2); Mean Corpuscular Volume 93.3 fl (81-99); Mean Platelet Volume 7.5 fl (7.4-10.4); Monocytes # 0.4 K/mm3 (0.1-1.0); Monocytes % 6.5 % (1.7-9.3); Neutrophils # 3.6 K/mm3 (1.8-7.8); Neutrophils % 59.2 % (37.0-80.0); Platelet Count 267 K/mm3 (142-424); Red Blood Count 4.92 M/mm3 (4.20-5.40); Red Cell Distribution Width 13.8 % (11.5-17.5); White Blood Count 6.1 K/mm3 (4.8-10.8)
[2020-03-14 08:11] LABS: Chloride 99 mmol/L (98-107); Potassium 3.6 mmoL/L (3.5-5.1); Sodium 139 mmol/L (136-145)
[2020-03-14 08:14] LABS: Alanine Aminotransferase 30 U/L (12-78); Albumin Level 4.5 g/dl (3.5-5.0); Albumin/Globulin Ratio 1.6 (1.1-1.8); Alkaline Phosphatase 50 U/L (38-126); Anion Gap 13.6 mEq/L (5-15); Aspartate Amino Transferase 33 U/L (14-36); Bilirubin,Total 0.8 mg/dl (0.2-1.3); Blood Urea Nitrogen 11 mg/dl (7-17); Carbon Dioxide 30 mmol/L (22.0-30.0); Estimated Glomerular Filt Rate 73 ml/min (>60); GFR (African American) 88 ML/MIN (>60); Globulin 2.9 g/dL (1.3-3.2); Total Protein,Serum 7.4 g/dl (6.3-8.2)
[2020-03-14 08:15] LABS: Calcium 10.1 mg/dl (8.4-10.2); Glucose 107 mg/dl (74-100)
== END ==
PROVIDERS: Visit Provider Orthopaedic Surgery
DX: R07.9 Chest pain, unspecified (principal); R79.9 Abnormal finding of blood chemistry, unspecified
CPT/HCPCS: 36415; 80053; 85025; 93005

== ENCOUNTER → 2020-04-05 08:23 | Outpatient (CLI) | payer BC, SELFPAY ==
[2020-04-05 09:14] LABS: Basophils % 0.7 % (0.1-2.0); Eosinophils # 0.1 K/mm3 (0.0-0.4); Eosinophils % 0.9 % (0.1-12.0); Hematocrit 44.1 % (37.0-47.0); Lymphocytes # 1.5 K/mm3 (0.7-4.5); Lymphocytes % 23.5 % (10-50); Mean Corpuscular HGB Conc 34.1 g/dL (31.8-35.4); Mean Corpuscular Hemoglobin 31.5 pg (27.0-31.2); Mean Corpuscular Volume 92.2 fl (81-99); Mean Platelet Volume 7.5 fl (7.4-10.4); Monocytes # 0.5 K/mm3 (0.1-1.0); Monocytes % 7.6 % (1.7-9.3); Neutrophils # 4.2 K/mm3 (1.8-7.8); Neutrophils % 67.4 % (37.0-80.0); Platelet Count 282 K/mm3 (142-424); Red Blood Count 4.78 M/mm3 (4.20-5.40); Red Cell Distribution Width 13.5 % (11.5-17.5); White Blood Count 6.2 K/mm3 (4.8-10.8)
[2020-04-05 10:18] LABS: Chloride 96 mmol/L (98-107); Sodium 137 mmol/L (136-145)
[2020-04-05 10:21] LABS: Alanine Aminotransferase 22 U/L (12-78); Albumin Level 4.4 g/dl (3.5-5.0); Albumin/Globulin Ratio 1.5 (1.1-1.8); Alkaline Phosphatase 63 U/L (38-126); Aspartate Amino Transferase 27 U/L (14-36); Bilirubin,Total 0.7 mg/dl (0.2-1.3); Blood Urea Nitrogen 12 mg/dl (7-17); Carbon Dioxide 31 mmol/L (22.0-30.0); Chol/HDL Ratio 3.1 (1-3.5); Cholesterol 175 mg/dl (140-200); Estimated Glomerular Filt Rate 85 ml/min (>60); GFR (African American) 103 ML/MIN (>60); Glucose 105 mg/dl (74-100); HDL Cholesterol 57 mg/dl (40-60); Total Protein,Serum 7.4 g/dl (6.3-8.2); Triglycerides 146 mg/dl (30-150); VLDL Cholesterol 29 mg/dL (0-40)
[2020-04-05 10:32] LABS: 25-OH Vitamin D, Total 26.8 ng/mL (30-100)
[2020-04-05 10:42] LABS: Direct LDL Cholesterol 96.56 mg/dL (100-129)
== END ==
PROVIDERS: Visit Provider Internal Medicine Adolescent Medicine
DX: E78.5 Hyperlipidemia, unspecified (principal); E55.9 Vitamin D deficiency, unspecified
CPT/HCPCS: 36415; 80053; 80061; 82306; 85025

== ENCOUNTER 2020-09-02 08:00 | Outpatient (RCR) | payer BC, SELFPAY | END 2020-09-02 08:05 | disposition home or self-care (01) | LOC: OT 08:00 | PROVIDERS: PCP Internal Medicine Adolescent Medicine; Visit Provider Orthopaedic Surgery | DX: M75.101 Unspecified rotator cuff tear or rupture of right shoulder, not specified as traumatic (principal) | CPT/HCPCS: 97014; 97110; 97140; 97164; 97166; 97530; G0283 ==

== ENCOUNTER → 2020-10-04 07:19 | Outpatient (CLI) | payer BC, SELFPAY ==
[2020-10-04 07:52] LABS: Basophils % 0.7 % (0.1-2.0); Eosinophils # 0.1 K/mm3 (0.0-0.4); Eosinophils % 1.5 % (0.1-12.0); Hematocrit 43.3 % (37.0-47.0); Hemoglobin 13.9 g/dL (12.2-16.2); Lymphocytes # 1.9 K/mm3 (0.7-4.5); Lymphocytes % 41.3 % (10-50); Mean Corpuscular HGB Conc 32.2 g/dL (31.8-35.4); Mean Corpuscular Hemoglobin 30.1 pg (27.0-31.2); Mean Corpuscular Volume 93.5 fl (81-99); Mean Platelet Volume 7.5 fl (7.4-10.4); Monocytes # 0.3 K/mm3 (0.1-1.0); Monocytes % 6.7 % (1.7-9.3); Neutrophils # 2.3 K/mm3 (1.8-7.8); Neutrophils % 49.7 % (37.0-80.0); Platelet Count 249 K/mm3 (142-424); Red Blood Count 4.63 M/mm3 (4.20-5.40); Red Cell Distribution Width 13.1 % (11.5-17.5); White Blood Count 4.6 K/mm3 (4.8-10.8)
[2020-10-04 08:36] LABS: Chloride 102 mmol/L (98-107)
[2020-10-04 08:37] LABS: Potassium 3.9 mmoL/L (3.5-5.1); Sodium 138 mmol/L (136-145)
[2020-10-04 08:39] LABS: Blood Urea Nitrogen 13 mg/dl (7-17); Estimated Glomerular Filt Rate 63 ml/min (>60); GFR (African American) 77 ML/MIN (>60)
[2020-10-04 08:40] LABS: Alanine Aminotransferase 36 U/L (12-78); Albumin Level 4.6 g/dl (3.5-5.0); Albumin/Globulin Ratio 1.4 (1.1-1.8); Alkaline Phosphatase 54 U/L (38-126); Anion Gap 8.9 mEq/L (5-15); Aspartate Amino Transferase 36 U/L (14-36); Bilirubin,Total 0.7 mg/dl (0.2-1.3); Calcium 9.8 mg/dl (8.4-10.2); Carbon Dioxide 31 mmol/L (22.0-30.0); Chol/HDL Ratio 3.5 (1-3.5); Cholesterol 188 mg/dl (140-200); Globulin 3.2 g/dL (1.3-3.2); Glucose 93 mg/dl (74-100); HDL Cholesterol 53 mg/dl (40-60); Total Protein,Serum 7.8 g/dl (6.3-8.2); Triglycerides 159 mg/dl (30-150); VLDL Cholesterol 32 mg/dL (0-40)
[2020-10-04 08:51] LABS: Direct LDL Cholesterol 99.18 mg/dL (100-129)
[2020-10-04 08:55] LABS: 25-OH Vitamin D, Total 25.8 ng/mL (30-100)
== END ==
PROVIDERS: Visit Provider Internal Medicine Adolescent Medicine
DX: E78.5 Hyperlipidemia, unspecified (principal); E55.9 Vitamin D deficiency, unspecified
CPT/HCPCS: 36415; 80053; 80061; 82306; 85025

== ENCOUNTER → 2020-10-16 07:45 | Outpatient (CLI) | payer BC, SELFPAY ==
--- NOTE | 2020-10-16 07:51 | XR_ITS ---
PROCEDURE: XR DEXA AXIAL SKELETON CLINICAL HISTORY: POST MENOPAUSAL COMPARISON: CR BONE3 BONE DENSITOMETRY(HIP:LT SPINE from 10/12/2016 FINDINGS: The right hip BMD is 0.789 with a T-score of -0.5. The left hip BMD is 0.892 with a T-score of -0.4. The lumbar spine BMD is 1.159 with a T-score of 1.0. Previously the lowest bone density was in the right femoral neck with a T-score -0.5 IMPRESSION: This patient is considered normal according to the World Health Organization criteria. Fracture risk is low. Based on these results a follow-up exam is recommended in 2 year. Dictated by: Ezekiel Caro MD 10/17/2020 07:48 zEekiel Caro MD in [place] 10/17/2020 07:48
--- NOTE | 2020-10-16 07:52 | MM_ITS ---
PROCEDURE: MM DIG SCREENING MAMM BI W/CAD Digital Breast Tomosynthesis Included CLINICAL INDICATION: SCREENING There is a history of breast cancer in the patient's maternal grandmother diagnosed after menopause. COMPARISON: MG DMSB DIG MAMM-SCREEN [place] from 07/10/2016 MG SCBI MM Dig screening mamm BI w/CAD from 11/03/2017 MG [facility] MM Dig screening mamm BI w/CAD from 11/07/2018 TECHNIQUE: Standard CC and MLO images and 3D Tomosynthesis was obtained. R2 CAD reviewed. FINDINGS: Breasts are composed primarily of minimal fibroglandular elements in the subareolar regions bilaterally. There are no CAD markings. Findings are bilateral and symmetrical. There is no new or suspicious lesion in either breast and no suspicious microcalcifications. IMPRESSION: Fatty type breast parenchyma with no suspicious lesions seen BI-RAD Category: 1 Negative FOLLOW-UP: 1YR 1 Year Follow-up (A letter has been sent to the patient regarding results of the study.) Dictated by: Dr. Martinez De La Fuente MD 10/18/2020 11:14 Dr. Martinez De La Fuente MD in [place] 10/18/2020 11:14
== END ==
PROVIDERS: PCP Internal Medicine Adolescent Medicine; Visit Provider Internal Medicine Adolescent Medicine
DX: Z12.31 Encounter for screening mammogram for malignant neoplasm of breast (principal); Z13.820 Encounter for screening for osteoporosis; Z78.0 Asymptomatic menopausal state
CPT/HCPCS: 77063; 77067; 77080

== ENCOUNTER → 2020-11-20 12:41 | Outpatient (POV) | payer BC, SELFPAY | DX: Z00.00 Encounter for general adult medical examination without abnormal findings (principal) ==

== ENCOUNTER → 2021-03-28 07:10 | Outpatient (CLI) | payer BC, SELFPAY ==
[2021-03-28 07:43] LABS: Basophils % 0.6 % (0.1-2.0); Eosinophils # 0.1 K/mm3 (0.0-0.4); Eosinophils % 1.8 % (0.1-12.0); Hematocrit 45.5 % (37.0-47.0); Hemoglobin 15.1 g/dL (12.2-16.2); Lymphocytes % 33.2 % (10-50); Mean Corpuscular HGB Conc 33.1 g/dL (31.8-35.4); Mean Corpuscular Hemoglobin 31.1 pg (27.0-31.2); Mean Corpuscular Volume 93.9 fl (81-99); Mean Platelet Volume 7.2 fl (7.4-10.4); Monocytes # 0.4 K/mm3 (0.1-1.0); Monocytes % 6.8 % (1.7-9.3); Neutrophils # 3.4 K/mm3 (1.8-7.8); Neutrophils % 57.6 % (37.0-80.0); Platelet Count 252 K/mm3 (142-424); Red Blood Count 4.84 M/mm3 (4.20-5.40); Red Cell Distribution Width 12.9 % (11.5-17.5); White Blood Count 5.9 K/mm3 (4.8-10.8)
[2021-03-28 08:34] LABS: 25-OH Vitamin D, Total 31.3 ng/mL (30-100)
[2021-03-28 20:34] LABS: Alanine Aminotransferase 29 U/L (12-78); Albumin Level 4.4 g/dl (3.5-5.0); Albumin/Globulin Ratio 1.4 (1.1-1.8); Alkaline Phosphatase 50 U/L (38-126); Anion Gap 15.6 mEq/L (5-15); Aspartate Amino Transferase 30 U/L (14-36); Bilirubin,Total 0.5 mg/dl (0.2-1.3); Blood Urea Nitrogen 12 mg/dl (7-17); Carbon Dioxide 29 mmol/L (22.0-30.0); Chloride 97 mmol/L (98-107); Chol/HDL Ratio 3.5 (1-3.5); Cholesterol 201 mg/dl (140-200); Estimated Glomerular Filt Rate 85 ml/min (>60); GFR (African American) 102 ML/MIN (>60); Globulin 3.2 g/dL (1.3-3.2); Glucose 99 mg/dl (74-100); HDL Cholesterol 57 mg/dl (40-60); Potassium 3.6 mmoL/L (3.5-5.1); Sodium 138 mmol/L (136-145); Total Protein,Serum 7.6 g/dl (6.3-8.2); Triglycerides 152 mg/dl (30-150); VLDL Cholesterol 30 mg/dL (0-40)
[2021-03-28 20:45] LABS: Direct LDL Cholesterol 116.75 mg/dL (100-129)
== END ==
PROVIDERS: Visit Provider Internal Medicine Adolescent Medicine
DX: E78.5 Hyperlipidemia, unspecified (principal); E55.9 Vitamin D deficiency, unspecified
CPT/HCPCS: 36415; 80053; 80061; 82306; 85025

== ENCOUNTER → 2022-01-01 12:37 | Outpatient (CLI) | payer MEDICARE, BC, SELFPAY | PROVIDERS: PCP Internal Medicine Adolescent Medicine; Visit Provider Nurse Practitioner Family | DX: R00.2 Palpitations (principal) | CPT/HCPCS: 93225; 93226 ==

== ENCOUNTER → 2022-01-15 07:51 | Outpatient (CLI) | payer MEDICARE, BC, SELFPAY ==
--- NOTE | 2022-01-15 07:54 | MM_ITS ---
PROCEDURE INFORMATION: Exam: MG Bilateral Screening 3D Mammography Exam date and time: 01/15/2022 7:59 AM Age: 61 years old Clinical indication: Screening examination TECHNIQUE: Imaging protocol: Bilateral Screening tomosynthesis and 2D mammography including computer-aided detection (CAD) when performed. COMPARISON: 1. MG MM DIG SCREENING MAMM BI W/CAD 10/16/2020 8:01 AM 2. MG SCBI MM Dig screening mamm BI w/CAD 11/07/2018 8:42 AM FINDINGS: MAMMOGRAPHY: Breast composition: There are scattered areas of fibroglandular density. Mass: None. Architectural distortion: None. Calcifications: No suspicious calcifications. Asymmetric density: None. Skin thickening: None. Axillary adenopathy: None. IMPRESSION: No mammographic evidence of malignancy. Annual screening is recommended unless otherwise clinically indicated. ASSESSMENT: BI-RADS Category 1: Negative
== END ==
PROVIDERS: PCP Internal Medicine Adolescent Medicine; Visit Provider Internal Medicine Adolescent Medicine
DX: Z12.31 Encounter for screening mammogram for malignant neoplasm of breast (principal)
CPT/HCPCS: 77063; 77067

== ENCOUNTER → 2022-01-23 07:00 | Outpatient (CLI) | payer MEDICARE, BC, SELFPAY ==
--- NOTE | 2022-01-23 | CA_ITS ---
APPROVED REPORT Exam: Exercise Treadmill Technologist: Vale Chu, Ht: 5 ft 5 in Wt: 180 lbs BSA: 1.89 m2 HR: 71 bpm BP: 175/86 mmHg Rhythm: NSR Medical History Medical History: HTN, Hyperlipidemia Medications: Trazadone,,,,, HCTZ,,,,, Estradiol,,,,, Vit D,,,,, Magnesium,,,,, RoSUVASTATIN,,,,, OmPEprazole,,,,, Metprolol,,,,, KOnsyl,,,,, Cardiac Risk Factors: HTN, Hyperlipidemia, , FHX of CAD Stress Test Details Test: Bev HR Resting HR: 81 bpm Max Heart Rate (APMHR): 157.333093 bpm Max HR Achieved: 160 bpm Target HR (85% APMHR): 133.251574 bpm % of APMHR: 101.91 Recovery HR: 133 bpm BP Resting BP: 165/80 mmHg Max BP: 193/100 mmHg Recovery BP: 190.0/90.0 mmHg ECG Resting ECG: NSR Clinical Exercise duration: 06:17 min Highest Stage Achieved: Exercise capacity: 7.0 METs Stress ECG Conclusion During bev protocol pt did not experince CP or SOA. Occasional PVC/PAC noted. <1mm ST-T Test Summary REST . . . . . . . Sitting REST . . . . . . . Standing REST 07:11 0.0 0.0 81 . 165/ 80 . . Stage 1 01:00 10.0 1.7 102 . . . . Stage 1 02:00 10.0 1.7 116 . 164/ 82 . . Stage 1 03:00 10.0 1.7 129 . 164/ 82 . . Stage 2 01:00 12.0 2.5 140 . . . . Stage 2 02:00 12.0 2.5 146 . . . . Stage 2 03:00 12.0 2.5 157 . 180/ 90 . . Stage 3 00:17 14.0 3.4 160 . . . Stop exercise at 06:17 RECOVERY 01:00 0.0 0.0 136 . . . . RECOVERY 02:00 0.0 0.0 123 . 190/ 90 . . RECOVERY 03:00 0.0 0.0 102 . 190/ 90 . . RECOVERY 04:00 0.0 0.0 98 . 185/ 81 . . RECOVERY 05:00 0.0 0.0 0 . 193/100 . . RECOVERY 05:44 0.0 0.0 0 . 193/100 . . Electronically signed by : John Sanabria MD 01/23/2022 12:10:39
--- NOTE | 2022-01-23 07:08 | NM_ITS ---
APPROVED REPORT Exam: Nuclear Stress Test Indication: SOB, Abnormal EKG, HTN, High cholesterol, Family history Patient Location: Outpatient Stress Tech: Vale PALACIOS Tech:Harleen Flores, ARRT, RT (R)(N) Ht: 5 ft 5 in Wt: 180 lbs Bra Size: B HR: 81 bpm BP: 165/80 mmHg BSA: 1.89 m2 TID: 1.18 BMI: 29.9 History: SOB, Abnormal EKG, HTN, High cholesterol, Family history Procedure: Patient exercised on Ankur protocol 6:17 minutes and sec, resting heart rate 81 bpm, resting blood pressure 165/80 mmHg, with exercise maximum heart rate achived was 160 bpm which is 102 % of the maximum predicted heart rate and blood pressure was 193/100 mmHg. Test was stopped due to SOB. Patient denied any complaint of chest pain. Patient has Adequate exercise capacity, achieved 7.0 METs of workload on treadmill, the blood pressure response to exercise was Hypertensive. Electrocardiogram Resting electrocardiogram shows sinus rhythm, with exercise there is less than 1.[address] segment depression noted from the baseline EKG. The EKG portion of the exercise Myoview is negative for ischemia. Cardiac Stress and Resting SPECT Images: Cardiac Stress and Resting SPECT images were obtained using technetium 99m Myoview 28.7 mCi stress and 10.73 mCi at rest. Gated SPECT for analysis of segmental wall motion and calculation of the ejection fraction also done. Prone images were also obtained. Cardiac stress and rest SPECT images show uniform myocardial activity without segmental perfusion abnormality, computer derived ejection fraction is 52% with no regional wall motion abnormality, right ventricle is normal size and contractility. Conclusion: 1. The EKG portion of the exercise Myoview is negative for ischemia, patient has adequate exercise capacity achieved 7 METS of workload on treadmill, the blood pressure response to exercise was hypertensive, there was no exercise-induced chest discomfort. 2. No scintigraphic evidence of reversible ischemia seen, computer derived ejection fraction 52% with no regional wall motion abnormality, right ventricle is normal size and contractility. 3. Normal exercise Myoview study except for hypertensive blood pressure response. Electronically signed by : John Sanabria MD 01/23/2022 12:39:22
--- NOTE | 2022-01-23 08:59 | CA_ITS ---
APPROVED REPORT EXAM: Comprehensive 2D, Doppler, and color-flow Echocardiogram Career Services Assistant: Sherri Jasso RVT Ht: 5 ft 5 in Wt: 185lbs BSA: 1.91 BP: 138/90 mmHg Indications: SOA,HTN,HLD,GERD,PALPS 2D Dimensions LVOT 2.22 cm (M/F) 1.5-2.5 LA Volume 23.80 mL LA Volume Index 12.46 mL/m2 (M/F) 16-34 M-Mode Dimensions RVDd 2.92 cm (0.9-2.6) LA Diam 3.66 cm (1.9-4.0) LVDd 3.72 cm (3.5-5.7) Ao Diam 3.05 cm (2.0-3.7) LVDs 2.28 cm (3.5-5.7) IVSd 1.02 cm (0.6-1.1) PWd 0.83 cm (0.6-1.1) EF (Teich) 69.90% FS 38.70% EDV (Teich) 58.90 mL TAPSE 1.87 (<1.7) ESV (Teich) 17.70 mL LV Diastology E Decel Time 220.00 (160-240 msec) E/A Ratio 0.8 Aortic Valve AO Peak GR. 4.30 mmHg Mitral Valve MV E Max Eliud. 77.00 (40-130 cm/s) MV A Velocity 94.00 (40-130 cm/s) E/A Ratio 0.82 MV Decel. Time 220.00 (160-240 ms) MV PHT 64.00 ms Pulmonary Valve PV Peak Velocity 77.00 (50-150 cm/s) Tricuspid Valve TR P. Velocity 215.00 cm/s RAP Estimate 10.00 mmHg RVSP 28.50 mmHg Left Ventricle Left atrium is mildly enlarged, left ventricle is normal size mild qualitative concentric left ventricular hypertrophy, estimated ejection fraction 55% with no regional wall motion abnormality, Doppler evidence of impaired LV relaxation seen. Right Ventricle Right atrium and right ventricle are normal size and contractility. Aortic Valve Aortic valve is minimally thickened and fibrosed there is no aortic stenosis or aortic insufficiency. Mitral Valve Mitral valve grossly normal, there is trace mitral regurgitation. Tricuspid valve grossly normal, there is trace tricuspid regurgitation, Tricuspid Valve Tricuspid regurgitation jet velocity is inadequate for calculation of the right ventricular systolic pressure. Pulmonic Valve Pulmonic valve is poorly visualized. Great Vessels Aortic root is normal size. Inferior vena cava normal size with normal inspiratory collapse. Pericardium No significant pericardial effusion noted. Conclusion 1. Normal left ventricular size, preserved left ventricular systolic function, estimated ejection fraction 55% with no regional wall motion abnormality, Doppler evidence of impaired LV relaxation seen, there is no tissue Doppler performed. 2. Trace mitral and tricuspid regurgitation. 3. No significant pericardial effusion. 4. Inferior vena cava normal size with normal inspiratory collapse. Electronically signed by : John Sanabria MD 01/23/2022 10:19:44
--- NOTE | 2022-01-23 09:37 | HMH.ITSHM ---
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 []HCTZ ESTRAIOL DICLOFENAC COQ10 TRAZODONE ROSUVASTATIN OMEPRAZOLE OMEGA 3 MAGNESIUM VITAMIN D3
== END ==
PROVIDERS: PCP Internal Medicine Adolescent Medicine; Visit Provider Nurse Practitioner Family
DX: R00.8 Other abnormalities of heart beat (principal); I49.3 Ventricular premature depolarization; R06.09 Other forms of dyspnea
CPT/HCPCS: 78452; 93017; 93306; A9502

== ENCOUNTER → 2022-02-20 10:46 | Outpatient (CLI) | payer SELFPAY ==
--- NOTE | 2022-02-20 10:46 | CT_ITS ---
FINAL REPORT CLINICAL HISTORY: . chest pain, hx pvc FINDINGS: CT CORONARY CALCIUM SCORE WITHOUT TECHNIQUE: Thin-section axial images were obtained through the heart and coronary arteries per CT coronary calcium score protocol. This study was performed with techniques to keep radiation doses as low as reasonably achievable, (ALARA). Individualized dose reduction techniques using automated exposure control or adjustment of mA and/or kV according to the patient's size were employed. FINDINGS: On the axial images, there is calcification within the arteries. This gives a coronary artery calcium score of 247 based on the Agatston scale. This patient has coronary artery score places them within the 90th percentile based on age and gender. The heart size is normal. Limited evaluation of the lungs revealed no suspicious nodule. IMPRESSION: Calcium score of 247 places the patient within the 90th percentile based on age and gender. Reviewed, Interpreted and Dictated by Manuela Barclay MD Transcribed by Antionette Chaudhry Authenticated and . [facility]
== END ==
PROVIDERS: PCP Internal Medicine Adolescent Medicine; Visit Provider Physician Assistant
DX: E11.9 Type 2 diabetes mellitus without complications (principal); Z13.6 Encounter for screening for cardiovascular disorders
CPT/HCPCS: 75571

== ENCOUNTER → 2022-03-06 06:56 | Outpatient (CLI) | payer MEDICARE, BC, SELFPAY ==
[2022-03-06 07:58] LABS: Alanine Aminotransferase 42 U/L (12-78); Alkaline Phosphatase 49 U/L (38-126); Aspartate Amino Transferase 46 U/L (14-36); Bilirubin,Direct 0.2 mg/dl (0.0-0.4); Bilirubin,Indirect 0.2 mg/dL (0.0-0.9); Bilirubin,Total 0.4 mg/dl (0.2-1.3); Bilirubin,Unconjugated 0.3 mg/dL (0.0-1.1); Cholesterol 145 mg/dl (140-200); Triglycerides 131 mg/dl (30-150); VLDL Cholesterol 26 mg/dL (0-40)
[2022-03-06 07:59] LABS: Albumin Level 4.4 g/dl (3.5-5.0); Chol/HDL Ratio 3.7 (1-3.5); HDL Cholesterol 39 mg/dl (40-60); Total Protein,Serum 7.5 g/dl (6.3-8.2)
[2022-03-07 10:22] LABS: Direct LDL Cholesterol 74 mg/dL (100-129)
== END ==
PROVIDERS: PCP Internal Medicine Adolescent Medicine; Visit Provider Physician Assistant
DX: E78.5 Hyperlipidemia, unspecified (principal); I10 Essential (primary) hypertension; I49.3 Ventricular premature depolarization; R00.2 Palpitations; R06.00 Dyspnea, unspecified; R07.9 Chest pain, unspecified; R93.1 Abnormal findings on diagnostic imaging of heart and coronary circulation
CPT/HCPCS: 36415; 80061; 80076

== ENCOUNTER 2022-10-29 10:08 | Day surgery (SDC) | payer MEDICARE, BC, SELFPAY ==
[2022-10-21 12:53] VITALS: BMI 24.6
[2022-10-29 10:57] VITALS: BP 152/66; PULSE 85; RESP 18; TEMP 36.2; O2SAT 99
[2022-10-29 11:37] VITALS: O2SAT 97
--- NOTE | 2022-10-29 11:49 | HMH.SCOPE ---
Procedure: Date: 10/29/22 Patient Date of :: 1960 Procedure Performed:: Screening colonoscopy Indications:: History of polyps Performing Provider:: Tomy Arthur MD Referring Provider:: Jeancarlos Fontaine MD Sedation:: Propofol Procedure:: After placing the patient in the left lateral decubitus position, the colonoscopy was gently inserted into the rectum and under direct visualization advanced to the cecum which was identified by transillumination in the right lower quadrant, identification of the ileocecal valve, appendiceal orifice, and cecal strap. Color, texture, mucosa, and anatomy of the colon were carefully examined with the scope. Findings:: Anal canal: normal Rectum: normal Sigmoid colon: normal without polyps or inflammatory changes, few diverticuli noted Descending colon: normal without polyps or inflammatory changes Splenic flexure: normal Transverse colon: normal without polyps or inflammatory changes Hepatic flexure: normal Ascending colon: normal without polyps or inflammatory changes Cecum: normal Terminal ileum: not visualized Impression: Few sigmoid diverticuli otherwise normal colonoscopy Recommendations:: Follow up examination in about FIVE years or so, sooner if clinically indicated in view of history of polyps. Complications:: None Estimated blood obtained (mL): 0
[2022-10-29 11:50] VITALS: BP 119/77; PULSE 83; RESP 16; O2SAT 96
[2022-10-29 12:00] VITALS: BP 130/73; PULSE 81; RESP 17; O2SAT 98
[2022-10-29 12:10] VITALS: BP 139/60; PULSE 60; RESP 18; O2SAT 97
[2022-10-29 12:20] VITALS: BP 146/76; PULSE 58; RESP 18; O2SAT 100
== END 2022-10-29 12:40 | disposition home or self-care (01) ==
PROVIDERS: PCP Internal Medicine Adolescent Medicine; Visit Provider Internal Medicine Gastroenterology
PROC: 0DJD8ZZ Inspection of Lower Intestinal Tract, Via Natural or Artificial Opening Endoscopic (ICD-10-PCS; CPT 45378; principal; 2022-10-29 11:30)
DX: Z12.11 Encounter for screening for malignant neoplasm of colon (principal); Z86.010 Personal history of colon polyps; Z79.899 Other long term (current) drug therapy
CPT/HCPCS: G0105

== ENCOUNTER → 2023-01-18 07:39 | Outpatient (CLI) | payer MEDICARE, BC, SELFPAY ==
--- NOTE | 2023-01-18 07:43 | MM_ITS ---
PROCEDURE INFORMATION: Exam: MG Bilateral Screening 3D Mammography Exam date and time: 01/18/2023 7:38 AM Age: 62 years old Clinical indication: Screening examination. Her maternal grandmother had breast cancer. TECHNIQUE: Imaging protocol: Bilateral Screening tomosynthesis and 2D mammography including computer-aided detection (CAD) when performed. COMPARISON: 1. MG MM DIG SCREENING MAMM BI W/CAD 01/15/2022 7:59 AM 2. MG MM DIG SCREENING MAMM BI W/CAD 10/16/2020 8:01 AM 3. MG SCBI MM Dig screening mamm BI w/CAD 11/07/2018 8:42 AM 4. MG SCBI MM Dig screening mamm BI w/CAD 11/03/2017 9:26 AM FINDINGS: MAMMOGRAPHY: Breast composition: There are scattered areas of fibroglandular density. Mass: None. Architectural distortion: None. Calcifications: No suspicious calcifications. Asymmetric density: None. Skin thickening: None. Axillary adenopathy: None. IMPRESSION: No mammographic evidence of malignancy. Annual screening is recommended unless otherwise clinically indicated. ASSESSMENT: BI-RADS Category 1: Negative
== END ==
PROVIDERS: PCP Internal Medicine Adolescent Medicine; Visit Provider Internal Medicine Adolescent Medicine
DX: Z12.31 Encounter for screening mammogram for malignant neoplasm of breast (principal)
CPT/HCPCS: 77063; 77067

== ENCOUNTER 2023-10-14 07:59 | Outpatient (CLI) | payer MEDICARE, SELFPAY ==
[2023-10-14 08:16] LABS: Basophils % 1.1 % (0.1-2.0); Eosinophils % 0.7 % (0.1-12.0); Hematocrit 44.8 % (37.0-47.0); Hemoglobin 14.6 g/dL (12.2-16.2); Lymphocytes # 1.3 K/mm3 (0.7-4.5); Lymphocytes % 33.3 % (10-50); Mean Corpuscular HGB Conc 32.7 g/dL (31.8-35.4); Mean Corpuscular Hemoglobin 32.5 pg (27.0-31.2); Mean Corpuscular Volume 99.5 fl (81-99); Mean Platelet Volume 8.2 fl (7.4-10.4); Monocytes # 0.3 K/mm3 (0.1-1.0); Monocytes % 7.3 % (1.7-9.3); Neutrophils # 2.3 K/mm3 (1.8-7.8); Neutrophils % 57.5 % (37.0-80.0); Platelet Count 227 K/mm3 (142-424); Red Cell Distribution Width 12.8 % (11.5-17.5); White Blood Count 3.9 K/mm3 (4.8-10.8)
[2023-10-14 09:09] LABS: Albumin Level 4.8 g/dl (3.5-5.0); Albumin/Globulin Ratio 1.6 (1.1-1.8); Alkaline Phosphatase 49 U/L (38-126); Anion Gap 8.3 mEq/L (5-15); Bilirubin,Total 0.8 mg/dl (0.2-1.3); Blood Urea Nitrogen 11 mg/dl (7-17); Calcium 9.9 mg/dl (8.4-10.2); Carbon Dioxide 32 mmol/L (22.0-30.0); Chloride 95 mmol/L (98-107); Chol/HDL Ratio 3.6 (1-3.5); Cholesterol 167 mg/dl (140-200); Estimated Glomerular Filt Rate 72 ml/min (>60); GFR (African American) 87 ML/MIN (>60); Glucose 94 mg/dl (74-100); HDL Cholesterol 46 mg/dl (40-60); Magnesium 2.2 mg/dl (1.6-2.3); Potassium 4.3 mmoL/L (3.5-5.1); Sodium 131 mmol/L (136-145); Total Protein,Serum 7.8 g/dl (6.3-8.2); Triglycerides 151 mg/dl (30-150); VLDL Cholesterol 30 mg/dL (0-40)
[2023-10-14 09:40] LABS: Thyroid Stimulating Hormone 1.98 uIU/mL (0.465-4.68)
[2023-10-14 10:25] LABS: Alanine Aminotransferase 33 U/L (12-78); Aspartate Amino Transferase 43 U/L (14-36)
== END 2023-10-14 23:59 ==
LOC: LAB 07:59
PROVIDERS: PCP Internal Medicine Adolescent Medicine; Visit Provider Internal Medicine Adolescent Medicine
DX: E78.5 Hyperlipidemia, unspecified (principal); I49.3 Ventricular premature depolarization
CPT/HCPCS: 36415; 80053; 80061; 83735; 84443; 85025

== ENCOUNTER 2024-02-16 08:22 | Outpatient (CLI) | payer MEDICARE, SELFPAY ==
--- NOTE | 2024-02-16 08:28 | MM_ITS ---
PROCEDURE INFORMATION: Exam: MG Bilateral Screening 3D Mammography Exam date and time: 02/16/2024 8:14 AM Age: 63 years old Clinical indication: Screening mammogram TECHNIQUE: Imaging protocol: Bilateral Screening tomosynthesis and 2D mammography including computer-aided detection (CAD) when performed. COMPARISON: 1. MG MM DIG SCREENING MAMM BI W/CAD 01/18/2023 7:38 AM 2. MG MM DIG SCREENING MAMM BI W/CAD 01/15/2022 7:59 AM 3. MG MM DIG SCREENING MAMM BI W/CAD 10/16/2020 8:01 AM 4. MG SCBI MM Dig screening mamm BI w/CAD 11/07/2018 8:42 AM FINDINGS: MAMMOGRAPHY: Breast composition: There are scattered areas of fibroglandular density. Mass: None. Architectural distortion: No new or suspicious architectural distortion. Calcifications: No new or suspicious calcifications are present Asymmetric density: No new or suspicious asymmetric density is present Skin thickening: None. Axillary adenopathy: None. IMPRESSION: No mammographic evidence of malignancy. Recommend annual screening mammography unless otherwise clinically indicated. ASSESSMENT: BI-RADS category 1: Negative.
== END 2024-02-16 23:59 | disposition home or self-care (01) ==
LOC: RAD 08:22
PROVIDERS: PCP Internal Medicine Adolescent Medicine; Visit Provider Internal Medicine Adolescent Medicine
DX: Z12.31 Encounter for screening mammogram for malignant neoplasm of breast (principal)
CPT/HCPCS: 77063; 77067

== ENCOUNTER 2024-10-26 09:00 | Outpatient (CLI) | payer MEDICARE, SELFPAY ==
--- NOTE | 2024-10-26 09:09 | XR_ITS ---
FINAL REPORT TECHNIQUE: Bone mineral density was calculated of the lumbar spine and hip. CLINICAL HISTORY: SCREENING COMPARISON: None FINDINGS: Using L1-4, the bone mineral density of the spine is 1.161 g/cm2, corresponding to T-score of 1.0. Using the left hip, the bone mineral density of the femoral neck is 0.907 g/cm2, corresponding to a T-score of -0.3. Using the right hip, the bone mineral density of the femoral neck is 0.756 g/cm?, corresponding to a T-score of -0.8. NOTE: T-score: Standard deviation compared with peak bone mass of young adult mean. *Following the recommendations of the International Society of Bone densitometry, classification of hip BMD is based on the lower of two T-scores; total hip or femoral neck. IMPRESSION: Normal bone mineral density of the lumbar spine and bilateral hips. Reviewed, Interpreted and Dictated by Sophia Bernal MD Transcribed by Vianey Purcell Authenticated and [facility]
== END 2024-10-26 23:59 | disposition home or self-care (01) ==
LOC: RAD 09:01
PROVIDERS: PCP Internal Medicine Adolescent Medicine; Visit Provider Internal Medicine Adolescent Medicine
DX: E55.9 Vitamin D deficiency, unspecified (principal)
CPT/HCPCS: 77080

== ENCOUNTER 2025-02-13 08:23 | Outpatient (CLI) | payer MEDICARE, SELFPAY ==
--- OUTSIDE RECORDS SUMMARY | 2025-02-05 06:38 | XMS_ITS ---
Author Organization [facility] Address [address] [facility] [address] [place] [address] Care Team Providers Care Life Skills Coordinator Name Role Phone Jeancarlos Fontaine Primary Care Provider [phone] REASON FOR VISIT Mammogram Encounters Encounter Location Date Provider Diagnosis [facility] [address] [facility] [address] [place] [address] 02/05/2025 Jeancarlos Fontaine Routine adult health maintenance Z00.00 Assessments Encounter Date Diagnosis (ICD Code) Assessment Notes Treatment Notes Treatment Clinical Notes Section Notes 02/05/2025 Routine adult health maintenance (ICD-10 - Z00.00) Plan Of Treatment Pending Test Test Name Order Date Mammogram : Bilateral 02/05/2025 Next Appt Details Provider Name:Jeancarlos Fontaine, 02/19/2025 08:45:00 AM, [address] [facility], [address], [place], [place], [address], Progress Notes * Zora PATTONDOB:1960 ([age] yo F)Acc No.[id number]:02/05/2025 Patient: Zora JOHNSON :1960 A ge:64 Y S ex:Female Address:[address] [place] [address] Subjective: * Chief Complaints: * M ammogram * Medical History: * Surgical History: * Hospitalization/Major Diagno stic Procedure: * Medications: Objective: * Vitals: * Physical Examination: Assessment: * Assessment: [address] [place] [address] - Z00.00 (Primary) Plan: * Treatment: * Procedure Codes: * true * Date: Generated for Rhoda gaviria/Amol/Virgie on: 0 02/13/2025 08:35 AM EDT
--- OUTSIDE RECORDS SUMMARY | 2025-02-13 04:13 | XMS_ITS ---
Author Organization [facility] Address [address] [facility] [address] [place] [address] Care Team Providers Care District Leader Name Role Phone Jeancarlos Fontaine Primary Care Provider FunmilayoMercedez wang [facility] [phone] REASON FOR VISIT hyponatremia Encounters Encounter Location Date Provider Diagnosis [facility] [address] [place], [place] [address] 02/13/2025 Mercedez Mello Hyponatremia E87.1 Assessments Encounter Date Diagnosis (ICD Code) Assessment Notes Treatment Notes Treatment Clinical Notes Section Notes 02/13/2025 Hyponatremia (ICD-10 - E87.1) Plan Of Treatment Pending Test Test Name Order Date M-Basic Metabolic Panel 02/13/2025 Next Appt Details Provider Name:Jeancarlos Fontaine, 02/19/2025 08:45:00 AM, [address], [address], [place], [place], [address], Progress Notes * Zora PATTONDOB:1960 ([age] yo F)Acc No.[id number]:02/13/2025 Patient: Zora JOHNSON :1960 A ge:64 Y S ex:Female Address:[address], [place] [address] Subjective: * Chief Complaints: * H yponatremia * Medical History: * Surgical History: * Hospitalization/Major Diagno stic Procedure: * Medications: Objective: * Vitals: * Physical Examination: Assessment: * Assessment: 1. H yponatremia - E87.1 (Primary) Plan: * Treatment: * Procedure Codes: * true * Date: Generated for Rhoda gaviria/Amol/Virgie on: 0 02/13/2025 08:35 AM EDT
--- OUTSIDE RECORDS SUMMARY | 2025-02-13 08:35 | XMS_ITS | Clinical Summary ---
Author Organization Healthcare Address [address] [place] [address] Care Team Providers Care Director Of Career Resources Name Role Phone Jeancarlos Fontaine MD Primary Care Provider + [phone] Family History Medical History Relation Name Comments Conversions - Other Mother Back pro blem Stroke Other 1 Hypertension Other 2 Other cancer Other 3 Heart attack Other 4 Heart attack Sibling Relation Name Status Comments Mother Other 1 Other 2 Other 3 Other 4 Sibling Social History Tobacco Use Types Packs/Day Years Used Date Smoking Tobacco: Never Comments Unknown Sex and Gender Information Value Date Recorded Sex Assigned at Not on file Legal Sex Female 6:47 PM EDT Gender Identity Not on file Sexual Orientation Not on file Last Filed Vital Signs Vital Sign Reading Time Taken Comments Blood Pressure - - Pulse - - Temperature - - Respiratory Rate - - Oxygen Saturation - - Inhaled Oxygen Concentration - - Weight 82.6 kg (182 lb 0.2 oz) 07/03/2014 1:40 P M EST Height 165.1 cm (5' 5 ) 07/03/2014 1:40 PM EST Body Mass Index 30.29 07/03/2014 1:40 PM EST Plan of Treatment Not on file Care Teams Director Of Career Resources Relationship Specialty Start Date End Date Jeancarlos Fontaine MD [address] [place] [address] PCP - General 12/06/20
--- OUTSIDE RECORDS SUMMARY | 2025-02-13 08:36 | XMS_ITS | Patient Health Record ---
Author Organization [facility] PE D JAMES Address [address] [place] [address] Care Team Providers Care Pulmonary Disease Specialist Name Role Phone Jeancarlos Fontaine Primary Care Provider [phone] Merced[address] Mello Unavailable [phone] Migration, Provider Unavailable Unavailable Allergies Allergen (clinical [...] blisters Drug Allergy Act adrienne Substance with 6-tyqmkhd-0-methylg lutaryl-coenzyme A reductase inhibitor mechanism of action (substance) Statins pain in legs Drug Allergy Active Results Component Value Reference Range Notes DEXA Hip and Spine - Screeni ng Reviewed date:10/30/2024 04:02:32 PM Interpretation: Performing Lab: Notes/Report: VITAMIN D,25-OH,TOTAL,IA (17 306) Reviewed date:04/16/2024 04:12:48 PM Interpretation: Performing Lab:CB, [facility] [address] [facility], Jed HernandezCsmeFI[address] Yusef Morales Notes/Report: NON-FASTING; NON-FASTING; NON-FASTING; NON-FASTING FASTING:YES FASTING: YES VITAMIN D,25-OH,TOTAL,IA 35 30-100 ng/mL Vitamin D Status 25-OH Vitamin D: Deficiency: <20 ng/mL Insufficiency: 20 - 29 ng/mL Optimal: > or = 30 ng/mL For 25-OH Vitamin D testing on patients on D2-supplementation and patients for whom quantitation of D2 and D3 fractions is required, the QuestAssureD(TM) 25-OH VIT D, (D2,D3), LC/MS/MS is recommended: order code [id number] (patients >2yrs). See Note 1 Note 1 For additional information, please refer to http://The Learning ExperienceAcademy/faq/RAI997 (This link is being provided for informational/ educational purposes only.) VITAMIN D,25-OH,TOTAL,IA (17 306) Reviewed date:10/14/2024 02:20:53 PM Interpretation: Performing Lab:[facility], TeleverdeMjlcCQ[address] Yusef Morales Notes/Report: NON-FASTING; NON-FASTING; NON-FASTING; NON-FASTING FASTING:YES FASTING: YES VITAMIN D,25-OH,TOTAL,IA 39 30-100 ng/mL Vitamin D Status 25-OH Vitamin D: Deficiency: <20 ng/mL Insufficiency: 20 - 29 ng/mL Optimal: > or = 30 ng/mL For 25-OH Vitamin D testing on patients on D2-supplementation and patients for whom quantitation of D2 and D3 fractions is required, the QuestAssureD(TM) 25-OH VIT D, (D2,D3), LC/MS/MS is recommended: order code [id number] (patients >2yrs). See Note 1 Note 1 For additional information, please refer to http://The Learning ExperienceAcademy/faq/DJD259 (This link is being provided for informational/ educational purposes only.) CBC (INCLUDES DIFF/PLT) (639 9) Reviewed date:10/14/2024 02:20:53 PM Interpretation: Performing Lab:[facility], TeleverdePndzQQ[address] Yusef Morales Notes/Report: NON-FASTING; NON-FASTING; NON-FASTING; NON-FASTING FASTING:YES FASTING: YES WHITE BLOOD CELL COUNT 3.4 3.8-10.8 Thousand/ uL RED BLOOD CELL COUNT 4.26 3.80-5.10 Million/uL HEMOGLOBIN 13.4 11.7-15.5 g/dL HEMATOCRIT 41.0 35.0-45.0 % MCV 96.2 80.0-100.0 fL MCH 31.5 27.0-33.0 pg MCHC 32.7 32.0-36.0 g/dL For adults, a slight decrease in the calculated MCHC value (in the range of 30 to 32 g/dL) is most likely not clinically significant; however, it should be interpreted with caution in correlation with other red cell parameters and the patient's clinical condition. RDW 12.1 11.0-15.0 % PLATELET COUNT 229 140-400 Thousand/uL MPV 10.4 7.5-12.5 fL ABSOLUTE NEUTROPHILS 1795 1348-1999 cells/uL ABSOLUTE LYMPHOCYTES 8385 641-8836 cells/uL ABSOLUTE MONOCYTES 364 200-950 cells/uL ABSOLUTE EOSINOPHILS 41 15-500 cells/uL ABSOLUTE BASOPHILS 20 0-200 cells/uL NEUTROPHILS 52.8 LYMPHOCYTES 34.7 MONOCYTES 10.7 EOSINOPHILS 1.2 BASOPHILS 0.6 CBC (INCLUDES DIFF/PLT) (639 9) Reviewed date:04/16/2024 04:12:48 PM Interpretation: Performing Lab:[facility], [facility]Jed [id number] [facility] CenterJed crespoKbahFA[address] Yusef Morales Notes/Report: NON-FASTING; NON-FASTING; NON-FASTING; NON-FASTING FASTING:YES FASTING: YES WHITE BLOOD CELL COUNT 4.0 3.8-10.8 Thousand/ uL RED BLOOD CELL COUNT 4.31 3.80-5.10 Million/uL HEMOGLOBIN 13.6 11.7-15.5 g/dL HEMATOCRIT 43.9 35.0-45.0 % MCV 101.9 80.0-100.0 fL MCH 31.6 27.0-33.0 pg MCHC 31.0 32.0-36.0 g/dL RDW 12.2 11.0-15.0 % PLATELET COUNT 211 140-400 Thousand/uL MPV 9.6 7.5-12.5 fL ABSOLUTE NEUTROPHILS 2504 7880-0428 cells/uL ABSOLUTE LYMPHOCYTES 2718 254-9080 cells/uL ABSOLUTE MONOCYTES 416 200-950 cells/uL ABSOLUTE EOSINOPHILS 28 15-500 cells/uL ABSOLUTE BASOPHILS 20 0-200 cells/uL NEUTROPHILS 62.6 LYMPHOCYTES 25.8 MONOCYTES 10.4 EOSINOPHILS 0.7 BASOPHILS 0.5 COMPREHENSIVE METABOLIC PANE L (89828) Reviewed date:04/16/2024 04:12:48 PM Interpretation: Performing Lab:[facility] [facility] [id number] [facility], [place] HospitalWxeiFT[address] Yusef Morales Notes/Report: NON-FASTING; NON-FASTING; NON-FASTING; NON-FASTING FASTING:YES FASTING: YES GLUCOSE 84 65-99 mg/dL Fasting reference interval UREA NITROGEN (BUN) 13 7-25 mg/dL CREATININE 0.73 0.50-1.05 mg/dL EGFR 91 > OR = 60 mL/min/1.73m2 BUN/CREATININE RATIO SEE NOTE: - (calc) Not Reported: BUN and Creatinine are within reference range. SODIUM 133 135-146 mmol/L POTASSIUM 4.5 3.5-5.3 mmol/L CHLORIDE 95 98-110 mmol/L CARBON DIOXIDE 30 20-32 mmol/L CALCIUM 10.3 8.6-10.4 mg/dL PROTEIN, TOTAL 7.5 6.1-8.1 g/dL ALBUMIN 4.5 3.6-5.1 g/dL GLOBULIN 3.0 1.9-3.7 g/dL (calc) ALBUMIN/GLOBULIN RATIO 1.5 1.0-2.5 (calc) BILIRUBIN, TOTAL 0.7 0.2-1.2 mg/dL ALKALINE PHOSPHATASE 48 37-153 U/L AST 24 10-35 U/L ALT 21 6-29 U/L COMPREHENSIVE METABOLIC PANE L (92515) Reviewed date:10/14/2024 02:20:53 PM Interpretation: Performing Lab:[facility] [employer] App Iqje[address] [facility], [place] HospitalYrqxSX[address] Yusef Morales Notes/Report: NON-FASTING; NON-FASTING; NON-FASTING; NON-FASTING FASTING:YES FASTING: YES GLUCOSE 86 65-99 mg/dL Fasting reference interval UREA NITROGEN (BUN) 13 7-25 mg/dL CREATININE 0.70 0.50-1.05 mg/dL EGFR 95 > OR = 60 mL/min/1.73m2 BUN/CREATININE RATIO SEE NOTE: 01-14 (calc) Not Reported: BUN and Creatinine are within reference range. SODIUM 129 135-146 mmol/L POTASSIUM 3.8 3.5-5.3 mmol/L CHLORIDE 93 98-110 mmol/L CARBON DIOXIDE 29 20-32 mmol/L CALCIUM 10.4 8.6-10.4 mg/dL PROTEIN, TOTAL 7.8 6.1-8.1 g/dL ALBUMIN 4.8 3.6-5.1 g/dL GLOBULIN 3.0 1.9-3.7 g/dL (calc) ALBUMIN/GLOBULIN RATIO 1.6 1.0-2.5 (calc) BILIRUBIN, TOTAL 0.7 0.2-1.2 mg/dL ALKALINE PHOSPHATASE 46 37-153 U/L AST 21 10-35 U/L ALT 17 6-29 U/L LIPID PANEL, STANDARD (7600) Reviewed date:10/14/2024 02:20:52 PM Interpretation: Performing Lab:[facility] [employer] [id number] [facility] Yusef Morales Notes/Report: NON-FASTING; NON-FASTING; NON-FASTING; NON-FASTING FASTING:YES FASTING: YES CHOLESTEROL, TOTAL 154 <200 mg/dL HDL CHOLESTEROL 53 > OR = 50 mg/dL TRIGLYCERIDES 91 <150 mg/dL LDL-CHOLESTEROL 82 Reference range: <100 Desirable range <100 mg/dL for primary prevention; <70 mg/dL for patients with CHD or diabetic patients with > or = 2 CHD risk factors. LDL-C is now calculated using the Bipin-Sandra calculation, which is a validated novel method providing better accuracy than the Friedewald equation in the estimation of LDL-C. Bipin INTERIANO et al. MANAS. 2013;310(19): 7697-5735 (http://education.[employer]/faq/KSE908) CHOL/HDLC RATIO 2.9 <5.0 (calc) NON HDL CHOLESTEROL 101 <130 mg/dL (calc) For patients with diabetes plus 1 major ASCVD risk factor, treating to a non-HDL-C goal of <100 mg/dL (LDL-C of <70 mg/dL) is considered a therapeutic option. LIPID PANEL, STANDARD (7600) Reviewed date:04/16/2024 04:12:48 PM Interpretation: Performing Lab:[facility] [employer] [address], Jed WilsonCtqoTQ[address] Yusef Morales Notes/Report: NON-FASTING; NON-FASTING; NON-FASTING; NON-FASTING FASTING:YES FASTING: YES CHOLESTEROL, TOTAL 135 <200 mg/dL HDL CHOLESTEROL 48 > OR = 50 mg/dL TRIGLYCERIDES 113 <150 mg/dL LDL-CHOLESTEROL 67 Reference range: <100 Desirable range <100 mg/dL for primary prevention; <70 mg/dL for patients with CHD or diabetic patients with > or = 2 CHD risk factors. LDL-C is now calculated using the Brittanie calculation, which is a validated novel method providing better accuracy than the Friedewald equation in the estimation of LDL-C. Bipin SS et al. MANAS. 2013;310(19): 7093-3111 (http://Mobilligy.[employer]/faq/PLB765) CHOL/HDLC RATIO 2.8 <5.0 (calc) NON HDL CHOLESTEROL 87 <130 mg/dL (calc) For patients with diabetes plus 1 major ASCVD risk factor, treating to a non-HDL-C goal of <100 mg/dL (LDL-C of <70 mg/dL) is considered a therapeutic option. Reason For Referral Reason Needs DEXA scan Diagnosis 1 Vitamin D deficiency (E55.9) Referral Organization [facility] RONNA RAMIREZ Referring Provider First Name Jeancarlos Referring Provider Last Name Minal Referring Provider Speciality Internal M edicine Referred Organization [facility] Referred Address [address] [place] [id number], Referred Provider Specialty Diagnostic R adiology Referral Priority Routine Referral Appointment Date 10/26/2024 Medications Medication SIG (Take, Route, Frequency, Duration) Notes Start Date End Date Status Metoprolol Succinate ER 50 MG TAKE 1 TABLET BY MOUTH ONCE DAILY; Duration: 30 Active KONSYL 100% DIRECTED ORALLY ONCE DAILY *Please review for potential replacement for e-prescription and drug interaction check* Active Aspirin 81 MG 1 tab(s) orally once a day; Duration: 30 day(s) Active Crestor 10 MG 1 tab(s) orally once a day; Duration: 30 days Active Theratears - 1 GTT IN EACH EYE 3-4 TIMES A DAY *Please review and pick correct strength-formulat ion from [employer] options. If intended option is not shown, discontinue and re-order from Quick Search* Active Co Q-10 100 MG 1 TAB QD *Please review and pick correct strength-formulat ion from [employer] options. If intended option is not shown, discontinue and re-order from Quick Search* Active FELIPE RED ONE CAPSULE PO ONCE A DAY *Please review for potential replacement for e-prescription and drug interaction check* Active hydroCHLOROthiazide 25 MG TAKE 1 TABLET BY MOUTH ONCE DAILY; Duration: 30 Active Tylenol Extra Strength 500 MG 1-2 tabs orally every 4 hours prn pain; Duration: 5 day(s) Active Vitamin D3 25 MCG (1000 UT) 1 tab(s) orally once a day; Duration: 30 day(s) Active Mag-200 800 MG 2 TAB(S) ORALLY ONCE A DAY; Duration: 14 DAY(S) *Please review and pick correct strength-formulat ion from [employer] options. If intended option is not shown, discontinue and re-order from Quick Search* Active Estradiol 0.5 MG 1 tab(s) orally once a day Active PriLOSEC OTC 20 MG 1 tab(s) orally once a day Active Immunizations Vaccine Route Administration Date Status Comme nts Adacel (Tdap) IM Intramuscular 01/16/2015 Administered Covid Moderna Unknown 08/02/2020 Administered Covid Moderna Unknown 09/03/2020 Administered Flublok IM Intramuscular 04/08/2020 Administered Flublok IM Intramuscular 04/07/2021 Administered Flublok IM Intramuscular 04/08/2022 Administered Fluzone High Dose IM Intramuscular 04/19/2023 Administered Fluzone High Dose IM Intramuscular 04/17/2024 Administered PCV-21 (Pneumococcal conjugate 20) IM Intramuscular 10/18/2024 Administered Prevnar PCV-20 (Pneumococcal conjugate 20) IM Intramuscular 04/19/2023 Administered RSV Unknown 04/19/2023 Administered RSV Unknown 04/19/2023 Administered SHINGRIX Unknown 10/06/2021 Administered SHINGRIX Unknown 02/27/2022 Administered Problems Problem Type SNOMED Code ICD Code Onset Dates Problem Status W/U Status Risk Notes Problem Hypertension (93806933) Hypertension (401.9) Active confirmed Problem Localized, primary osteoarthritis of the hand (934150579) Primary osteoarthritis, right hand (M19.041) Active confirmed Problem Vitamin D deficiency (20607488) Vitamin D deficiency (E55.9) Active confirmed Problem Hyperlipidemia (52067162) Hyperlipemia, idiopathic familial (E78.5) Active confirmed Problem Gastroesophageal reflux disease (760667808) GERD without esophagitis (K21.9) Active confirmed Problem Essential hypertension (32037151) Hypertension, essential (I10) Active confirmed Problem Adult health examination (532334687) Routine adult health maintenance (Z00.00) Active confirmed Problem Rupture of right rotator cuff (52844516105235688) Rotator cuff syndrome of right shoulder (M75.101) Active confirmed Problem Osteoarthritis of knee (417891884) Primary osteoarthritis of left knee (M17.12) Active confirmed Problem Osteoarthritis of knee (824972264) Primary osteoarthritis of right knee (M17.11) Active confirmed Problem Menopause (126657968) Menopause (Z78.0) Active confirmed Problem Localized, primary osteoarthritis of the hand (497029425) Primary osteoarthritis of left hand (M19.042) Active confirmed Problem Left rotator cuff syndrome (842606416948210) Rotator cuff syndrome of left shoulder (M75.102) Active confirmed Problem Artificial knee joint present (797284705457) Status post total knee replacement, right (Z96.651) Active confirmed Problem Basal cell carcinoma of left lower leg (C44.719) Active confirmed Problem Screening due (940022211) Screening due (Z13.9) Active confirmed Problem Ventricular premature depolarization (726861111) 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) Active confirmed Vital Signs Heart Rate 80 /min 10/18/2024 Temperature 97.8 degrees Fahrenheit 10/18/2024 Blood pressure diastolic 84 mm Hg 10/18/2024 Height 66.5 in 10/18/2024 Blood pressure systolic 140 mm Hg 10/18/2024 Weight 157.4 lbs 10/18/2024 BMI 25.02 kg/m2 10/18/2024 Encounters Encounter Location Date Provider Diagnosis [facility] [address] [facility] [address] [place] [address] 04/14/2024 Jeancarlos Fontaine [facility] [address] [facility] [address] [place] [address] 10/12/2024 [facility] [address] [facility] [address] [place] [address] 10/28/2024 Provider Migration [facility] [address] [facility] [address] [place] [address] 04/17/2024 Jeancarlos Besson Hyperlipemia, idiopathic familial E78.5 ; Hypertension, essential I10 ; Vitamin D deficiency E55.9 ; Routine adult health maintenance Z00.00 and Immunization(s) administered Z23 [facility] [address] [facility] [address] [place] [address] 10/18/2024 Jeancarlos Besson Hyperlipemia, idiopathic familial E78.5 ; Hypertension, essential I10 ; Vitamin D deficiency E55.9 ; Seborrheic keratosis L82.1 ; Hyponatremia E87.1 ; Encounter for immunization Z23 and Routine medical exam Z00.00 [facility] [address] [facility] [address] [place] [address] 04/13/2024 Jeancarlos Besson Hyperlipemia, idiopathic familial E78.5 ; Hypertension, essential I10 and Vitamin D deficiency E55.9 [facility] [address] [facility] [address] [place], [place] [address] 10/09/2024 Jeancarlosallison Fontaine Hyperlipemia, idiopathic familial E78.5 ; Hypertension, essential I10 and Vitamin D deficiency E55.9 [facility] [address] [facility] [address] [place] [address] 02/05/2025 Jeancarlos Fontaine Routine adult health maintenance Z00.00 [facility] [address] [facility] [address] [place] [address] 02/13/2025 Mercedez Mello Hyponatremia E87.1 Assessments Encounter Date Diagnosis (ICD Code) Assessment Notes Treatment Notes Treatment Clinical Notes Section Notes 04/13/2024 Hyperlipemia, idiopathic familial (ICD-10 - E78.5) 04/13/2024 Hypertension, essential (ICD-10 - I10) 04/17/2024 Hyperlipemia, idiopathic familial (ICD-10 - E78.5) Patient is on rosuvastatin. No side effects. LDL at 67. Good triglycerides and HDL control. No changes in plan. I reviewed labs that I ordered last week personally with patient 04/17/2024 Hypertension, essential (ICD-10 - I10) Blood pressure under good control. No changes in plan 10/09/2024 Hyperlipemia, idiopathic familial (ICD-10 - E78.5) 10/09/2024 Hypertension, essential (ICD-10 - I10) 10/18/2024 Hyperlipemia, idiopathic familial (ICD-10 - E78.5) Patient overall doing well. She does not actually have coronary atherosclerotic heart disease by definitions I do not think she qualifies to try to get her LDL pushed down. She is doing well on rosuvastatin 10, other risk factors have been modified. She is doing well. If she has further chest pain she will let me know 10/18/2024 Hypertension, essential (ICD-10 - I10) Blood pressure under good control. See notes below but sodium 02/05/2025 Routine adult health maintenance (ICD-10 - Z00.00) 02/13/2025 Hyponatremia (ICD-10 - E87.1) 10/09/2024 Vitamin D deficiency (ICD-10 - E55.9) 10/18/2024 Vitamin D deficiency (ICD-10 - E55.9) With low-dose vitamin D replacement her levels are now in the low normal range. No changes in plan 04/17/2024 Vitamin D deficiency (ICD-10 - E55.9) Patient is on low-dose vitamin D replacement. Reviewed labs with patient. Vitamin D level 35, at low end of normal but I recommended no change 04/13/2024 Vitamin D deficiency (ICD-10 - E55.9) 04/17/2024 Routine adult health maintenance (ICD-10 - Z00.00) Patient up-to-date with colon and mammogram screening. Vaccines are up-to-date. Had RSV vaccine last year. Flu shot given today. No falls. Excellent functional status. Will review cognitive screening at Medicare wellness exam in 10/18/2024 Seborrheic keratosis (ICD-10 - L82.1) I feel comfortable watching this lesion currently. She will let me know if any changes occur, reviewed the ABCD concept of needing biopsy 10/18/2024 Hyponatremia (ICD-10 - E87.1) Sodium 129. On HCTZ. Will check labs in 4 months. No symptoms of hyponatremia 04/17/2024 Immunization(s) administered (ICD-10 - Z23) 10/18/2024 Encounter for immunization (ICD-10 - Z23) New 21 valent pneumonia vaccine given 10/18/2024 Routine medical exam (ICD-10 - Z00.00) HRA reviewed. 09/25 word recall. Up-to-date with mammograms, follows with ASSIGNMENT CLERK. Up-to-date with colonoscopies. Does need a DEXA scan, this will be ordered. Depression screening negative. Excellent functional status. Vaccines up-to-date. is healthcare surrogate Plan Of Treatment Pending Test Test Name Order Date Mammogram : Bilateral 10/07/2020 Mammogram : Bilateral 02/05/2025 Holter Monitor, 48 hour 01/01/2022 Holter Monitor, 48 hour 05/23/2013 H-CBC with AUTO DIFF 10/05/2017 H-BODY FLUID CULTURE 02/10/2017 H-STREP SCREEN (RAPID) 09/21/2016 H-CMP 10/05/2017 H-LIPID PANEL 10/05/2017 H-LIPID PANEL 03/05/2014 H-VIT D, 25-HYDROXY 10/02/2016 H-VIT D, 25-HYDROXY 04/06/2017 H-VIT D, 25-HYDROXY 10/05/2017 DEXA Hip and Spine - Diagnostic 10/08/19 M-Basic Metabolic Panel 02/13/2025 M-Thyroid Panel 04/25/2018 M-Vitamin B12 04/25/2018 M-Vitamin D 25 Hydroxy 04/02/2020 M-Vitamin D 25 Hydroxy 09/30/2020 M-Vitamin D 25 Hydroxy 03/26/2021 Mammogram: Screening 01/15/2023 LIPID PANEL, STANDARD (7600) 10/11/2023 COMPREHENSIVE METABOLIC PANEL (40112) MAGNESIUM (622) 10/11/2023 CBC (INCLUDES DIFF/PLT) (6399) TSH (899) 10/11/2023 Future Test Test Name Order Date C-CMP 08/28/2013 C-LIPID PANEL 08/28/2013 C-TSH 08/28/2013 C-CPK 08/28/2013 BASIC METABOLIC PANEL (21257) 02/05/2025 Next Appt Details Provider Name:Jeancarlos Fontaine, 02/19/2025 08:45:00 AM, [address], [place], [address], Insurance Providers Payer Name Payer Address Payer Phone Subscriber Number Group Number Insured Name Patient Relationship to Insured Coverage Start Date Coverage End Date [employer] MED[employer]ARE [address] [address] [place] [address] [id number] Zora Bloom Self - patient is the insured Medications Administered Medication Instructions Date of Administration Dosage Notes Kenalog 04/30/2014 1 mL Kenalog 02/20/2015 1 mL Kenalog 09/19/2016 1 mL Medical (General) History Medical History History ICD Code Insomnia Hyperlipidemia Hypertension Vitamin D deficiency GERD Basal Cell Carcinoma normal bone density on DEXA scan September 2016 - repeated and normal 10/13 And also normal 10/17 colonoscopy June 2018 with tubular a denoma - clean scope in 2022 Normal mammogram 10/2018 -normal yearly m ammograms last on 02/15 Vitamin D deficiency E55.9 Surgical History Surgery Date(Month/Year) Rt Bartholin cyst/gland removal Rectal fistula repair x 4 D&C x 2 Lt wrist tendon release wisdon teeth Laprascopic cholecystectomy Diskectomy L4, L5, S1 Hysteroscopy-endometrial ablation TVH w/ BSO ABD wall Lipoma Rt palm index finger ganglion cyst Numerous mole removal-back, neck and arm s normal colonoscopy in 2009 total right knee replacement 10/08/2015 Left rotator cuff and bicep tear repair 02/21/2019 lt rotator cuff/bicep tear repair 0 rt rotator cuff surgery 03/26/2020 Hospitalization History Reason Date(Month/Year) total right knee replacement 10/08/2015 All above surgeries Gastroenterisis/Dehydration 2003
--- OUTSIDE RECORDS SUMMARY | 2025-02-13 08:36 | XMS_ITS | Clinical Summary ---
Author Organization [facility] Address [address] [place] [address] Care Team Providers Care Wad Compressor Operator Adjuster Name Role Phone Jeancarlos Fontaine MD Primary Care Provider [phone] Allergies Active Allergy Reactions Criticality Noted Date Comments Methylprednisolone Sodium Succ Swelling 11/16/2016 Corticosteroids Nutritional Supplements Itching 11/24/2016 Iodine Palpitations Low 11/16/2016 Antiseptics and Disinfectants Iodoform 11/16/2016 Chemicals Etodolac Palpitations Low 11/16/2016 Analgesics and Anti-inflammatory Nabumetone Palpitations Low 11/24/2016 A-G Pro 11/16/2016 Dietary products and Dietary Management Products Medications estradiol (ESTRACE) 0.5 MG tablet Take 0.5 mg by mouth Daily. Active Omeprazole (PRILOSEC PO) Take by mouth. Active rosuvastatin (CRESTOR) 10 MG tablet Take 10 mg by mouth Daily. Active HYDROCHLOROTHIA ZIDE PO Take 25 mg by mouth Daily. Active TRAZODONE HCL PO Take 50 mg by mouth. Active Magnesium 200 MG tablet Take 800 mg by mouth Daily. Active NIACIN ER PO Take 500 mg by mouth. Active MEGARED OMEGA-3 KRILL OIL PO Take 1 capsule by mouth Daily. Active coenzyme Q10 100 MG capsule Take 100 mg by mouth Daily. Active omeprazole (priLOSEC) 20 MG capsule Take 20 mg by mouth Daily. Active cholecalciferol (VITAMIN D3) 1000 units tablet Take 1,000 Units by mouth Daily. Active magnesium oxide (MAG-OX) 400 MG tablet Take 800 mg by mouth Daily. Active Active Problems No known active problems Immunizations Immunization Administration Dates Next Due Tetanus 02/24/2016 Family History Medical History Relation Name Comments Diabetes Brother Heart disease Father Cancer Maternal Grandfather Diabetes Maternal Grandfather Heart disease Maternal Grandfather Rheum arthritis Maternal Grandfather Cancer Maternal Grandmother Diabetes Maternal Grandmother Heart disease Maternal Grandmother Rheum arthritis Maternal Grandmother Osteoarthritis Mother Diabetes Sister Hypertension Sister Relation Name Status Comments Brother Father Maternal Grandfather Maternal Grandmother Mother Sister Social History Tobacco Use Types Packs/Day Years Used Date Smoking Tobacco: Never Smokeless Tobacco: Never Alcohol Use Standard Drinks/Week Comments Yes 0 (1 standard drink = 0.6 oz pur e alcohol) OCC Abuse Screen Answer Date Recorded Unsafe at Home or Work/School Not on file Feels Threatened by Someone? Not on file 05/2023 Does Anyone Keep You from Co ntacting Others or Doint Things Outside the Home? Not on file 05/05/2023 Physical Sign of Abuse Present Not on file 1 Housing Stability Answer Date Recorded Current Living Arrangements Not on file 04/25 Potentially Unsafe Housing Conditions Not on cornelio e 05/05/2023 Family and Community Support Answer Ridge e Recorded Help with Day-to-Day Activities Not on file 05/05/2023 Lonely or Isolated Not on file 05/05/2023 Employment Answer Date Recorded Do you want help finding or keeping work or a astrid b? Not on file 05/05/2023 Disabilities Answer Date Recorded Concentrating, Remembering, or Making Decisions Difficulty Not on file 05/05/2023 Doing Errands Independently Difficulty Not on fi le 05/05/2023 Education Answer Date Recorded Help with school or training? Not on file Preferred Language Not on file 05/05/2023 Comments No Sex and Gender Information Value Date Recorded Sex Assigned at Not on file Legal Sex Female 9:48 AM EST Gender Identity Not on file Sexual Orientation Not on file Last Filed Vital Signs Vital Sign Reading Time Taken Comments Blood Pressure 172/88 12/17/2020 7:57 AM EDT Pulse 85 12/17/2020 7:57 AM EDT Temperature - - Respiratory Rate - - Oxygen Saturation 99% 12/06/2018 8:50 AM EDT Inhaled Oxygen Concentration - - Weight 82 kg (180 lb 12.8 oz) 12/17/2020 7:57 AM EDT Height 165.1 cm (5' 5 ) 12/17/2020 7:57 AM EDT Body Mass Index 30.09 12/17/2020 7:57 AM EDT Plan of Treatment Health Maintenance Due Date Last Done Comments DXA SCAN 1960 TDAP/TD VACCINES (1 - Tdap) 1977 MAMMOGRAM 1998 COLOGUARD 2003 COLON CANCER SCREENING 5 YEA R SIGMOIDOSCOPY 2003 COLONOSCOPY 2003 [address] CANCER SCREENING 2003 CT COLONOGRAPHY 2003 FECAL OCCULT BLOOD TEST 2003 FIT Testing (1 year) 2003 Pneumococcal Vaccine 50+ (1 of 1 - PCV) 2008 ZOSTER VACCINE (1 of 2) 2008 ANNUAL PHYSICAL 11/16/2016 HEPATITIS C SCREENING 11/16/2016 COVID-19 Vaccine ( season) 03/26/202403/2021, 08/02/2020 INFLUENZA VACCINE 04/25/2025 Insurance [facility] PPO Care Teams Wad Compressor Operator Adjuster Relationship Specialty Start Date End Date Jeancarlos Fontaine MD [address] [place] [address] PCP - General 09/26/15
[2025-02-13 10:42] LABS: Anion Gap 11.5 mEq/L (5-15); Blood Urea Nitrogen 13 mg/dl (7-17); Calcium 10.5 mg/dl (8.4-10.2); Carbon Dioxide 28 mmol/L (22.0-30.0); Chloride 98 mmol/L (98-107); Creatinine,Serum 0.80 mg/dl (0.52-1.04); Estimated Glomerular Filt Rate 72 ml/min (>60); GFR (African American) 87 ML/MIN (>60); Glucose 96 mg/dl (74-100); Potassium 4.5 mmoL/L (3.5-5.1); Sodium 133 mmol/L (136-145)
== END 2025-02-13 23:59 | disposition home or self-care (01) ==
LOC: LAB 08:23
PROVIDERS: PCP Internal Medicine Adolescent Medicine; Visit Provider Nurse Practitioner Family
DX: E87.1 Hypo-osmolality and hyponatremia (principal)
CPT/HCPCS: 36415; 80048

== ENCOUNTER 2025-02-15 09:09 | Outpatient (CLI) | payer MEDICARE, SELFPAY ==
--- OUTSIDE RECORDS SUMMARY | 2025-02-15 09:12 | XMS_ITS | Clinical Summary ---
Author Organization Healthcare Address [address] [place] [address] Care Team Providers Care Check Services Clerk Name Role Phone Jeancarlos Fontaine MD Primary Care Provider + [phone] Family History Medical History Relation Name Comments [...] of Treatment Not on file Care Teams Check Services Clerk Relationship Specialty Start Date End Date Jeancarlos Fontaine MD [address] [place] [address] PCP - General 12/06/20
[2025-02-15 09:53] LABS: Hematocrit 39.5 % (37.0-47.0); Hemoglobin 13.1 g/dL (12.2-16.2); Immature Granulocytes % 0.2 %; Mean Corpuscular HGB Conc 33.2 g/dL (31.8-35.4); Mean Corpuscular Hemoglobin 31.3 pg (27.0-31.2); Mean Corpuscular Volume 94.3 fl (81-99); Nucleated Red Blood Cells % 0 %; Platelet Count 220 K/mm3 (142-424); Red Blood Count 4.19 M/mm3 (4.20-5.40); Red Cell Distribution Width-SD 42.4 fL; White Blood Count 4.5 K/mm3 (4.8-10.8)
[2025-02-15 10:16] LABS: Albumin Level 5.0 g/dl (3.5-5.0); Chloride 97 mmol/L (98-107)
[2025-02-15 10:17] LABS: Potassium 4.5 mmoL/L (3.5-5.1); Sodium 133 mmol/L (136-145)
[2025-02-15 10:19] LABS: Alanine Aminotransferase 21 U/L (12-78); Anion Gap 11.5 mEq/L (5-15); Aspartate Amino Transferase 31 U/L (14-36); Bilirubin,Unconjugated 0.2 mg/dL (0.0-1.1); Blood Urea Nitrogen 19 mg/dl (7-17); Carbon Dioxide 29 mmol/L (22.0-30.0); Creatinine,Serum 0.70 mg/dl (0.52-1.04); Estimated Glomerular Filt Rate 84 ml/min (>60); GFR (African American) 101 ML/MIN (>60)
[2025-02-15 10:20] LABS: Alkaline Phosphatase 50 U/L (38-126); Bilirubin,Direct 0.1 mg/dl (0.0-0.4); Bilirubin,Indirect 0.2 mg/dL (0.0-0.9); Bilirubin,Total 0.3 mg/dl (0.2-1.3); Calcium 10.4 mg/dl (8.4-10.2); Cholesterol 155 mg/dl (140-200); Glucose 81 mg/dl (74-100); HDL Cholesterol 54 mg/dl (40-60); Magnesium 1.9 mg/dl (1.6-2.3); Total Protein,Serum 8.1 g/dl (6.3-8.2); Triglycerides 79 mg/dl (30-150)
[2025-02-15 10:38] LABS: Free T4 (Free Thyroxine) 0.82 ng/dl (0.78-2.19)
[2025-02-15 10:53] LABS: Thyroid Stimulating Hormone 1.39 uIU/mL (0.465-4.68)
== END 2025-02-15 23:59 | disposition home or self-care (01) ==
LOC: LAB 09:09
PROVIDERS: PCP Internal Medicine Adolescent Medicine; Visit Provider Nurse Practitioner
DX: I10 Essential (primary) hypertension (principal); I25.10 Atherosclerotic heart disease of native coronary artery without angina pectoris
CPT/HCPCS: 36415; 80048; 80061; 80076; 83735; 84439; 84443; 85025

== ENCOUNTER 2025-02-16 09:44 | Outpatient (CLI) | payer MEDICARE, SELFPAY ==
--- OUTSIDE RECORDS SUMMARY | 2025-02-05 06:38 | XMS_ITS ---
Author Organization [facility] Address [address] [facility] [address] [facility] [address] [place] [address] Care Team Providers Care Casket Coverer Name Role Phone Jeancarlos Fontaine Primary Care Provider REASON FOR VISIT Mammogram Encounters Encounter Location Date Provider Diagnosis [facility] [address] [facility] [address] [place] [address] 02/05/2025 Jeancarlos Fontaine Routine adult health maintenance Z00.00 Assessments Encounter Date Diagnosis (ICD Code) Assessment Notes Treatment Notes Treatment Clinical Notes Section Notes 02/05/2025 Routine adult health maintenance (ICD-10 - Z00.00) Plan Of Treatment Pending Test Test Name Order Date Mammogram : Bilateral 02/05/2025 Next Appt Details Provider Name:Jeancarlos Fontaine, 02/19/2025 08:45:00 AM, [address] [facility], [address], [place], [place], [address], Progress Notes * Zora PATTONDOB:1960 ([age] yo F)Acc No.[id number]:02/05/2025 Patient: Zroa JOHNSON :1960 A ge:64 Y S ex:Female Address:[address] [place] [address] Subjective: * Chief Complaints: * M ammogram * Medical History: * Surgical History: * Hospitalization/Major Diagno stic Procedure: * Medications: Objective: * Vitals: * Physical Examination: Assessment: * Assessment: . [facility] - Z00.00 (Primary) Plan: * Treatment: * Procedure Codes: * true * Date: Generated for Rhoda gaviria/Amol/Virgie on: 0 02/16/2025 09:47 AM EDT
--- OUTSIDE RECORDS SUMMARY | 2025-02-13 04:13 | XMS_ITS ---
Author Organization [facility] Address [address] [facility] [address] [place] [address] Care Team Providers Care Heading Pinner Name Role Phone Jeancarlos Fontaine Primary Care Provider Mercedez Mello Unavailable [phone] Results Component Value Reference Range Notes M-Basic Metabolic Panel Reviewed date:02/15/2025 02:19:41 PM Interpretation: Performing Lab: Notes/Report: NA 133 136-145 mmol/L K 4.5 3.5-5.1 mmoL/L CL 98 98-107 mmol/L CO2 28 22.0-30.0 mmol/L GAP 11.5 5-15 mEq/L BUN 13 7-17 mg/dl CREATT 0.80 0.52-1.04 mg/dl GFRAA 87 >60 ML/MIN EGFR 72 >60 ml/min GLU 96 74-100 mg/dl CA 10.5 8.4-10.2 mg/dl REASON FOR VISIT hyponatremia Encounters Encounter Location Date Provider Diagnosis [facility] [address] [place], [place] [address] 02/13/2025 Mercedez Funmilayo Hyponatremia E87.1 Assessments Encounter Date Diagnosis (ICD Code) Assessment Notes Treatment Notes Treatment Clinical Notes Section Notes 02/13/2025 Hyponatremia (ICD-10 - E87.1) Plan Of Treatment Next Appt Details Provider Name:Jeancarlos Fontaine, 02/19/2025 08:45:00 AM, [address], [address], [place], [address], Progress Notes * Zora PATTONDOB:1960 ([age] yo F)Acc No.[id number]:02/13/2025 Patient: Zora JOHNSON :1960 A ge:64 Y S ex:Female Address:[facility] [address], [place] [address] Subjective: * Chief Complaints: * H yponatremia * Medical History: * Surgical History: * Hospitalization/Major Diagno stic Procedure: * Medications: Objective: * Vitals: * Physical Examination: Assessment: * Assessment: 1. H yponatremia - E87.1 (Primary) Plan: * Treatment: * Procedure Codes: * true * Date: Generated for Rhoda gaviria/Amol/Arielitting on: 0 02/16/2025 09:47 AM EDT
--- OUTSIDE RECORDS SUMMARY | 2025-02-13 04:15 | XMS_ITS ---
Author Organization [facility] Address [address] [facility] [address] [place] [address] Care Team Providers Care Instrument Engineer Name Role Phone Jeancarlos Fontaine Primary Care Provider REASON FOR VISIT labs Encounters Encounter Location Date Provider Diagnosis [facility] [address] [place] [address] 02/13/2025 Jeancarlos Fontaine Plan Of Treatment Next Appt Details Provider Name:Jeancarlos Fontaine, 02/19/2025 08:45:00 AM, [address], [address], [place], [address], Progress Notes * Zora PATTONDOB:1960 ([age] yo F)Acc No.[id number]:02/13/2025 LABS Patient: Zora JOHNSON Provider: Radha Fontaine MD :1960 A ge:64 Y S ex:Female Date:02/13/2025 Address:[address], [place] Subjective: * Chief Complaints: * 1 . Labs. * Medical History: Objective: * Vitals: Assessment: Plan: * Treatment: * * Electronic signature of Mikel Fontaine MD FAAP on 02/16/2025 at 09:47 AM EDT Sign off status: Pending * Provider: S tephen Flako Besson, MD Date: 0 02/13/2025 Generated for Rhoda gaviria/Amol/Virgie on: 0 02/16/2025 09:47 AM EDT
--- NOTE | 2025-02-16 09:47 | MM_ITS ---
PROCEDURE INFORMATION: Exam: MG Bilateral Screening 3D Mammography Exam date and time: 02/16/2025 9:58 AM Age: 64 years old Clinical indication: Screening examination TECHNIQUE: Imaging protocol: Bilateral Screening tomosynthesis and 2D mammography including computer-aided detection (CAD) when performed. COMPARISON: 1. MG MM DIG SCREENING MAMM BI W/CAD 02/16/2024 8:14 AM 2. MG MM DIG SCREENING MAMM BI W/CAD 01/18/2023 7:38 AM FINDINGS: MAMMOGRAPHY: Breast composition: There are scattered areas of fibroglandular density. Mass: None. Architectural distortion: None. Calcifications: No suspicious calcifications. Asymmetric density: None. Skin thickening: None. Axillary adenopathy: None. IMPRESSION: No mammographic evidence of malignancy. Annual screening is recommended unless otherwise clinically indicated. ASSESSMENT: BI-RADS Category 1: Negative.
--- OUTSIDE RECORDS SUMMARY | 2025-02-16 09:47 | XMS_ITS | Clinical Summary ---
Author Organization [facility] Address [address] [place] [address] Care Team Providers Care Reel Slitter Name Role Phone Jeancarlos Fontaine MD Primary Care Provider + [phone] Family History Medical History Relation Name Comments [...] of Treatment Not on file Care Teams Reel Slitter Relationship Specialty Start Date End Date Jeancarlos Fontaine MD [address] [place] [address] PCP - General 12/06/20
--- OUTSIDE RECORDS SUMMARY | 2025-02-16 09:48 | XMS_ITS | Clinical Summary ---
Author Organization [facility] Address [address] [place] [address] Care Team Providers Care Industry Segment Specialist Name Role Phone Jeancarlos Fontaine MD Primary Care Provider [phone] Allergies Active Allergy Reactions Criticality Noted Date [...] season) 03/26/202403/2021, 08/02/2020 INFLUENZA VACCINE 04/25/2025 Insurance [facility] PPO Care Teams Industry Segment Specialist Relationship Specialty Start Date End Date Jeancarlos Fontaine MD [address] [place] [address] PCP - General 09/26/15
--- OUTSIDE RECORDS SUMMARY | 2025-02-16 09:48 | XMS_ITS | Patient Health Record ---
Author Organization [facility] Address [address] [place] [address] Care Team Providers Care Television Operator Name Role Phone Jeancarlos Fontaine Primary Care Provider Mercedez Mello Unavailable [phone] Migration, Provider Unavailable Unavailable Allergies Allergen (clinical [...] blisters Drug Allergy Act adrienne Substance with 9-xsxtvrx-8-methylg lutaryl-coenzyme A reductase inhibitor mechanism of action (substance) Statins pain in legs Drug Allergy Active Results Component Value Reference Range Notes M-Basic Metabolic Panel Reviewed date:02/15/2025 02:19:41 PM Interpretation: Performing Lab: Notes/Report: NA 133 136-145 mmol/L K 4.5 3.5-5.1 mmoL/L CL 98 98-107 mmol/L CO2 28 22.0-30.0 mmol/L GAP 11.5 5-15 mEq/L BUN 13 7-17 mg/dl CREATT 0.80 0.52-1.04 mg/dl GFRAA 87 >60 ML/MIN EGFR 72 >60 ml/min GLU 96 74-100 mg/dl CA 10.5 8.4-10.2 mg/dl LIPID PANEL, STANDARD (7600) Reviewed date:04/16/2024 04:12:48 PM Interpretation: Performing Lab:[facility] [employer] [address], [place] NvgoYK[address] Yusef Morales Notes/Report: NON-FASTING; NON-FASTING; NON-FASTING; NON-FASTING [...] LDL-C. Bipin INTERIANO et al. MANAS. 2013;310(19): 2750-0405 (http://education.[employer]/faq/KSN998) CHOL/HDLC RATIO 2.8 <5.0 (calc) NON HDL CHOLESTEROL 87 <130 mg/dL (calc) For patients with diabetes plus 1 major ASCVD risk factor, treating to a non-HDL-C goal of <100 mg/dL (LDL-C of <70 mg/dL) is considered a therapeutic option. COMPREHENSIVE METABOLIC PANE L (56704) Reviewed date:04/16/2024 04:12:48 PM Interpretation: Performing Lab:[facility] [address], [facility] CenterKaheSV[address] Yusef Morales Notes/Report: NON-FASTING; NON-FASTING; NON-FASTING; NON-FASTING FASTING:YES FASTING: YES GLUCOSE 84 65-99 mg/dL Fasting reference interval UREA NITROGEN (BUN) 13 7-25 mg/dL CREATININE 0.73 0.50-1.05 mg/dL EGFR 91 > OR = 60 mL/min/1.73m2 BUN/CREATININE RATIO SEE NOTE: 6-22 (calc) Not Reported: BUN and Creatinine are [...] 24 10-35 U/L ALT 21 6-29 U/L CBC (INCLUDES DIFF/PLT) (639 9) Reviewed date:04/16/2024 04:12:48 PM Interpretation: Performing Lab:[facility], [employer], [place] Yusef Morales Notes/Report: NON-FASTING; NON-FASTING; NON-FASTING; NON-FASTING FASTING:YES FASTING: YES WHITE BLOOD CELL COUNT 4.0 3.8-10.8 Thousand/ uL RED BLOOD CELL COUNT 4.31 3.80-5.10 Million/uL HEMOGLOBIN 13.6 11.7-15.5 g/dL HEMATOCRIT 43.9 35.0-45.0 % MCV 101.9 80.0-100.0 fL MCH 31.6 27.0-33.0 pg MCHC 31.0 32.0-36.0 g/dL RDW 12.2 11.0-15.0 % PLATELET COUNT 211 140-400 Thousand/uL MPV 9.6 7.5-12.5 fL ABSOLUTE NEUTROPHILS 2504 2985-8019 cells/uL ABSOLUTE LYMPHOCYTES 5832 154-2167 cells/uL ABSOLUTE MONOCYTES 416 200-950 cells/uL ABSOLUTE EOSINOPHILS 28 15-500 cells/uL ABSOLUTE BASOPHILS 20 0-200 cells/uL NEUTROPHILS 62.6 LYMPHOCYTES 25.8 MONOCYTES 10.4 EOSINOPHILS 0.7 BASOPHILS 0.5 VITAMIN D,25-OH,TOTAL,IA (17 306) Reviewed date:04/16/2024 04:12:48 PM Interpretation: Performing Lab:[facility], [employer], [place]tPM[address] Yusef Morales Notes/Report: NON-FASTING; NON-FASTING; NON-FASTING; NON-FASTING [...] D, (D2,D3), LC/MS/MS is recommended: order code 27525 (patients >2yrs). See Note 1 Note 1 For additional information, please refer to http://education.[employer]/faq/HDJ783 (This link is being provided for informational/ educational purposes only.) DEXA Hip and Spine - Screeni ng Reviewed date:10/30/2024 04:02:32 PM Interpretation: Performing Lab: Notes/Report: LIPID PANEL, STANDARD (7600) Reviewed date:10/14/2024 02:20:52 PM Interpretation: Performing Lab:[facility], [employer]-[place] [address] [facility] [[email or web address], [facility] CenterGapyPW[address] Yusef Morales Notes/Report: NON-FASTING; NON-FASTING; NON-FASTING; NON-FASTING [...] LDL-C. Bipin INTERIANO et al. MANAS. 2013;310(19): 6742-8322 (http://education.[employer]/faq/TTI271) CHOL/HDLC RATIO 2.9 <5.0 (calc) NON HDL CHOLESTEROL 101 <130 mg/dL (calc) For patients with diabetes plus 1 major ASCVD risk factor, treating to a non-HDL-C goal of <100 mg/dL (LDL-C of <70 mg/dL) is considered a therapeutic option. COMPREHENSIVE METABOLIC PANE L (02209) Reviewed date:10/14/2024 02:20:53 PM Interpretation: Performing Lab:[facility] [employer] Yusef Morales Notes/Report: NON-FASTING; NON-FASTING; NON-FASTING; NON-FASTING FASTING:YES FASTING: YES GLUCOSE 86 65-99 mg/dL Fasting reference interval UREA NITROGEN (BUN) 13 7-25 mg/dL CREATININE 0.70 0.50-1.05 mg/dL EGFR 95 > OR = 60 mL/min/1.73m2 BUN/CREATININE RATIO SEE NOTE: 6-22 (calc) Not Reported: BUN and Creatinine are [...] 21 10-35 U/L ALT 17 6-29 U/L CBC (INCLUDES DIFF/PLT) (639 9) Reviewed date:10/14/2024 02:20:53 PM Interpretation: Performing Lab:[facility] TechnologiesUnited [facility] District Hospitale[address] [facility], [facility] CenterCacyFA[address] Yusef Morales Notes/Report: NON-FASTING; NON-FASTING; NON-FASTING; NON-FASTING [...] MPV 10.4 7.5-12.5 fL ABSOLUTE NEUTROPHILS 1795 6753-2320 cells/uL ABSOLUTE LYMPHOCYTES 6678 798-3876 cells/uL ABSOLUTE MONOCYTES 364 200-950 cells/uL ABSOLUTE EOSINOPHILS 41 15-500 cells/uL ABSOLUTE BASOPHILS 20 0-200 cells/uL NEUTROPHILS 52.8 LYMPHOCYTES 34.7 MONOCYTES 10.7 EOSINOPHILS 1.2 BASOPHILS 0.6 VITAMIN D,25-OH,TOTAL,IA (17 306) Reviewed date:10/14/2024 02:20:53 PM Interpretation: Performing Lab:[facility] [employer]1355 [facility] [[email or web address], [facility] CenterGrazXD[address] Yusef Morales Notes/Report: NON-FASTING; NON-FASTING; NON-FASTING; NON-FASTING [...] D, (D2,D3), LC/MS/MS is recommended: order code 45693 (patients >2yrs). See Note 1 Note 1 For additional information, please refer to http://education.Pipeline/faq/XKL834 (This link is being provided for informational/ educational purposes only.) Reason For Referral Reason Needs DEXA scan Diagnosis 1 Vitamin D deficiency (E55.9) Referral Organization [facility] Referring Provider First Name Jeancarlos Referring Provider Last Name Minal Referring Provider Speciality Internal M edicine Referred Organization [facility] Referred Address [address], [place], [place],[address], Referred Provider Specialty Diagnostic R adiology Referral [...] review and pick correct strength-formulat ion from [employer] options. If intended option is not shown, discontinue and re-order from Quick Search* Active Co Q-10 100 MG 1 TAB QD *Please review and pick correct strength-formulat ion from [employer] options. If intended option is not shown, [...] review and pick correct strength-formulat ion from [employer] options. If intended option is not shown, discontinue and re-order from Quick Search* Active Estradiol 0.5 MG 1 tab(s) orally once a day Active PriLOSEC OTC 20 MG 1 tab(s) orally once a day Active Immunizations Vaccine Route Administration Date Status Comme nts SHINGRIX Unknown 10/06/2021 Administered SHINGRIX Unknown 02/27/2022 Administered RSV Unknown 04/19/2023 Administered RSV Unknown 04/19/2023 Administered Prevnar PCV-20 (Pneumococcal conjugate 20) IM Intramuscular 04/19/2023 Administered PCV-21 (Pneumococcal conjugate 20) IM Intramuscular 10/18/2024 Administered Fluzone High Dose IM Intramuscular 04/19/2023 Administered Fluzone High Dose IM Intramuscular 04/17/2024 Administered Flublok IM Intramuscular 04/08/2020 Administered Flublok IM Intramuscular 04/07/2021 Administered Flublok IM Intramuscular 04/08/2022 Administered Covid Moderna Unknown 08/02/2020 Administered Covid Moderna Unknown 09/03/2020 Administered Adacel (Tdap) IM Intramuscular 01/16/2015 Administered Problems Problem Type SNOMED Code ICD Code Onset Dates Problem Status W/U Status Risk Notes Problem Hypertension (78390012) Hypertension (401.9) Active confirmed Problem Localized, primary osteoarthritis of the hand (303423409) Primary osteoarthritis, right hand (M19.041) Active confirmed Problem Vitamin D deficiency (69019879) Vitamin D deficiency (E55.9) Active confirmed Problem Hyperlipidemia (27219823) Hyperlipemia, idiopathic familial (E78.5) Active confirmed Problem Gastroesophageal reflux disease (447886105) GERD without esophagitis (K21.9) Active confirmed Problem Essential hypertension (14918396) Hypertension, essential (I10) Active confirmed Problem Adult health examination (431737682) Routine adult health maintenance (Z00.00) Active confirmed Problem Rupture of right rotator cuff (14335713784889539) Rotator cuff syndrome of right shoulder (M75.101) Active confirmed Problem Osteoarthritis of knee (516162058) Primary osteoarthritis of left knee (M17.12) Active confirmed Problem Osteoarthritis of knee (159630637) Primary osteoarthritis of right knee (M17.11) Active confirmed Problem Menopause (391333188) Menopause (Z78.0) Active confirmed Problem Localized, primary osteoarthritis of the hand (412811186) Primary osteoarthritis of left hand (M19.042) Active confirmed Problem Left rotator cuff syndrome (074064156481060) Rotator cuff syndrome of left shoulder (M75.102) Active confirmed Problem Artificial knee joint present (817510352762) Status post total knee replacement, right (Z96.651) Active confirmed Problem Basal cell carcinoma of left lower leg (C44.719) Active confirmed Problem Screening due (810767209) Screening due (Z13.9) Active confirmed Problem Ventricular premature depolarization (045521814) 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) Active confirmed Vital Signs Heart Rate 80 /min 10/18/2024 Temperature 97.8 degrees Fahrenheit 10/18/2024 Blood pressure diastolic 84 mm Hg 10/18/2024 Height 66.5 in 10/18/2024 Blood pressure systolic 140 mm Hg 10/18/2024 Weight 157.4 lbs 10/18/2024 BMI 25.02 kg/m2 10/18/2024 Encounters Encounter Location Date Provider Diagnosis [facility] [address] [facility] [address] [place], [place] [address] 04/14/2024 Jeancarlos Besson [facility] [address] [facility] [address] [place] [address] 10/12/2024 Jeancarlos Besson [facility] [address] [facility] [address] [place] [address] 10/28/2024 Provider Migration [facility] [address] [facility] [address] [place], [place] [address] 04/17/2024 Jeancarlos Besson Hyperlipemia, idiopathic familial E78.5 ; Hypertension, essential I10 ; Vitamin D deficiency E55.9 ; Routine adult health maintenance Z00.00 and Immunization(s) administered Z23 [facility] [address] [facility] [address] [place] [address] 10/18/2024 Jeancarlos Besson Hyperlipemia, idiopathic familial E78.5 ; Hypertension, essential I10 ; Vitamin D deficiency E55.9 ; Seborrheic keratosis L82.1 ; Hyponatremia E87.1 ; Encounter for immunization Z23 and Routine medical exam Z00.00 [facility] [address] [facility] [address] [place], [place] [address] 04/13/2024 Jeancarlos Besson Hyperlipemia, idiopathic familial E78.5 ; Hypertension, essential I10 and Vitamin D deficiency E55.9 [facility] [address] [facility] [address] [place] [address] 10/09/2024 Jeancarlos Besson Hyperlipemia, idiopathic familial E78.5 ; Hypertension, essential I10 and Vitamin D deficiency E55.9 [facility] [address] [facility] [address] [place] [address] 02/05/2025 Jeancarlos Besson Routine adult health maintenance Z00.00 [facility] [address] [facility] [address] [place] [address] 02/13/2025 Mercedez Mello Hyponatremia E87.1 Assessments Encounter [...] medical exam (ICD-10 - Z00.00) HRA reviewed. 3/3 word recall. Up-to-date with mammograms, follows with CREDIT BALANCE SPECIALIST. Up-to-date with colonoscopies. Does need a DEXA [...] DEXA Hip and Spine - Diagnostic 10/08/19 21 M-Thyroid Panel 04/25/2018 M-Vitamin B12 04/25/2018 M-Vitamin D 25 Hydroxy 04/02/2020 M-Vitamin D 25 Hydroxy 09/30/2020 M-Vitamin D 25 Hydroxy 03/26/2021 Mammogram: Screening 01/15/2023 LIPID PANEL, STANDARD (7600) 10/11/2023 COMPREHENSIVE METABOLIC PANEL (63750) MAGNESIUM (622) 10/11/2023 CBC (INCLUDES DIFF/PLT) (6399) TSH (899) 10/11/2023 Future Test Test Name Order Date C-CMP 08/28/2013 C-LIPID PANEL 08/28/2013 C-TSH 08/28/2013 C-CPK 08/28/2013 BASIC METABOLIC PANEL (82563) 02/05/2025 Next Appt Details Provider Name:Jeancarlos Fontaine, 02/19/2025 08:45:00 AM, [address], [place], [address], Insurance Providers Payer Name Payer Address Payer Phone Subscriber Number Group Number Insured Name Patient Relationship to Insured Coverage Start Date Coverage End Date [employer] MEDICARE [address] [address] [place] [address] [id number] Zora Bloom Self - patient is the [...] knee replacement 10/08/2015 All above surgeries Gastroenterisis/Dehydration 2004
== END 2025-02-16 23:59 | disposition home or self-care (01) ==
LOC: RAD 09:45
PROVIDERS: PCP Internal Medicine Adolescent Medicine; Visit Provider Internal Medicine Adolescent Medicine
DX: Z12.31 Encounter for screening mammogram for malignant neoplasm of breast (principal); R92.323 Mammographic fibroglandular density, bilateral breasts
CPT/HCPCS: 77063; 77067

== ENCOUNTER 2025-05-11 07:03 | Outpatient (CLI) | payer MEDICARE, SELFPAY ==
--- OUTSIDE RECORDS SUMMARY | 2024-10-12 04:00 | XMS_ITS ---
Author Organization [facility] Address [address] [facility] [address] [place] [address] Care Team Providers Care Mine Engineering Supervisor Name Role Phone Jeancarlos Fontaine Primary Care Provider REASON FOR VISIT blood draw Encounters Encounter Location Date Provider Diagnosis [facility] [address] [place] [address] 10/12/2024 Jeancarlos Fontaine Plan Of Treatment Next Appt Details Provider Name:Jeancarlos Fontaine, 05/14/2025 09:30:00 AM, [address], [address], [place], [address], Progress Notes * Zora PATTONDOB:1960 ([age] yo F)Acc No.[id number]:10/12/2024 LABS Patient: Zora JOHNSON Provider: Radha Fontaine MD :1960 A ge:64 Y S ex:Female Date:10/12/2024 Address:[address], [id number] Subjective: * Chief Complaints: * 1 . Blood draw. * Medical History: Objective: * Vitals: Assessment: Plan: * Treatment: * * Electronic signature of Mikel Fontaine MD FAAP on 05/11/2025 at 07:06 AM EDT Sign off status: Pending * Provider: Radha Fontaine MD Date: 0 10/12/2024 Generated for Rhoda gaviria/Amol/Virgie on: 1 07:06 AM EDT
--- OUTSIDE RECORDS SUMMARY | 2024-10-28 17:30 | XMS_ITS ---
Author Organization [facility] Address [address] [place] [address] Care Team Providers Care Mid Level Provider Name Role Phone GodfreyanibalJeancarlos Primary Care Provider Migration, Provider Unavailable Unavailable Allergies Allergen (clinical drug ingredient) Drug/Non Drug Allergy documented on EMR Reaction Allergy Type Onset Date Status DEPO MEDROL (uncoded) swelling/pain rt knee Allergy Active IODIFORM PACKING GAUZE (uncoded) burn/blisters Allergy Active PAPER TAPE/BAND-AID (uncoded) itching Allergy Active etodolac Lodine tachycardia/sync opy Drug Allergy Active glucosamine Glucosamine rash Drug Allergy Act adrienne celecoxib CeleBREX oral blisters Drug Allergy Act adrienne Substance with 4-jkopoyx-1-methylg lutaryl-coenzyme A reductase inhibitor mechanism of action (substance) Statins pain in legs Drug Allergy Active [facility] Encounter Medications Medication SIG (Take, Route, Frequency, Duration) Notes Start Date End Date Status Vitamin D3 25 MCG (1000 UT) 1 tab(s) orally once a day; Duration: 30 day(s) Active Mag-200 800 MG 2 TAB(S) ORALLY ONCE A DAY; Duration: 14 DAY(S) *Please review and pick correct strength-formulat ion from [employer]pan options. If intended option is not shown, discontinue and re-order from Quick Search* Active Co Q-10 100 MG 1 TAB QD *Please review and pick correct strength-formulat ion from Medispan options. If intended option is not shown, discontinue and re-order from Quick Search* Active FELIPE RED ONE CAPSULE PO ONCE A DAY *Please review for potential replacement for e-prescription and drug interaction check* Active Tylenol Extra Strength 500 MG 1-2 tabs orally every 4 hours prn pain; Duration: 5 day(s) Active hydroCHLOROthiazide 25 MG TAKE ONE TABLE T BY MOUTH EVERY DAY Rfs rem none Active Aspirin 81 MG 1 tab(s) orally once a day; Duration: 30 day(s) Active Crestor 10 MG 1 tab(s) orally once a day; Duration: 30 days Active Theratears - 1 GTT IN EACH EYE 3-4 TIMES A DAY *Please review and pick correct [facility]ulat [facility]. If intended option is not shown, discontinue and re-order from Quick Search* Active Metoprolol Succinate ER 50 MG TAKE 1 TABLET BY MOUTH ONCE DAILY; Duration: 30 Active Estradiol 0.5 MG 1 tab(s) orally once a day Active PriLOSEC OTC 20 MG 1 tab(s) orally once a day Active KONSYL 100% DIRECTED ORALLY ONCE DAILY *Please review for potential replacement for e-prescription and drug interaction check* Active Encounters Encounter Location Date Provider Diagnosis [facility] [address] [place] [address] 10/28/2024 Provider Migration Plan Of Treatment Next Appt Details Provider Name:Jeancarlos Fontaine, 05/14/2025 09:30:00 AM, [address], [address], [place], [address], Progress Notes * Zora PATTONDOB:1960 ([age] yo F)Acc No.[id number]:10/28/2024 Patient: Zora JOHNSON Provider: Marce recinos Migration :1960 A ge:64 Y S ex:Female Date:10/28/2024 Address:[address], [place], [id number] Pcp:Jeancarlos Fontaine Subjective: * Chief Complaints: * 1 . Multum To Med[facility]pan Conversion Encounter. * Medical History: * Medications: T aking Theratears - SOLUTION 1 GTT IN EACH EYE 3-4 TIMES A DAY , Notes to Pharmacist: *Please review and pick correct strength-formulation from [employer] options. If intended option is not shown, discontinue and re-order from Quick Search*, Taking Aspirin 81 MG Tablet Delayed Release 1 tab(s) orally once a day , Taking FELIPE RED CAPSULE ONE CAPSULE PO ONCE A DAY , Notes to Pharmacist: *Please review for potential replacement for e-prescription and drug interaction check*, Taking Co Q-10 100 MG 1 TAB QD , Notes to Pharmacist: *Please review and pick correct strength- formulation from [employer] options. If intended option is not shown, discontinue and re-order from Quick Search*, Taking Tylenol Extra Strength 500 MG Tablet 1-2 tabs orally every 4 hours prn pain , Taking Mag-200 800 MG TABLET 2 TAB(S) ORALLY ONCE A DAY , Notes to Pharmacist: *Please review and pick correct strength-formulation from [employer] options. If intended option is not shown, discontinue and re-order from Quick Search*, Taking Vitamin D3 25 MCG (1000 UT) Tablet 1 tab(s) orally once a day , Taking PriLOSEC OTC 20 MG Tablet Delayed Release 1 tab(s) orally once a day , Taking Estradiol 0.5 MG Tablet 1 tab(s) orally once a day , Taking KONSYL 100% POWDER FOR RECONSTITUTION DIRECTED ORALLY ONCE DAILY , Notes to Pharmacist: *Please review for potential replacement for e-prescription and drug interaction check*, Taking hydroCHLOROthiazide 25 MG Tablet TAKE ONE TABLET BY MOUTH EVERY DAY Rfs rem none , Taking Metoprolol Succinate ER 50 MG Tablet Extended Release 24 Hour TAKE 1 TABLET BY MOUTH ONCE DAILY , Taking Crestor 10 MG Tablet 1 tab(s) orally once a day * Allergies: L odine: tachycardia/syncopy, IODIFORM PACKING GAUZE: burn/blisters, DEPO MEDROL: swelling/pain rt knee, Statins: pain in legs, Glucosamine: rash, CeleBREX: oral blisters, PAPER TAPE/BAND-AID: itching. Objective: * Vitals: Assessment: Plan: * Treatment: * * Electronic signature of Prov ider Migration on 05/11/2025 at 07:07 AM EDT Sign off status: Pending * Provider: Marce recinos Migration Date: 0 10/28/2024 Generated for Rhoda gaviria/Amol/eTransmitting on: 1 07:07 AM EDT
--- OUTSIDE RECORDS SUMMARY | 2025-02-13 04:15 | XMS_ITS ---
Author Organization [facility] Address [address] [facility] [address] [place] [address] Care Team Providers Care Calliope Player Name Role Phone Jeancarlos Fontaine Primary Care Provider [phone] REASON FOR VISIT labs Encounters Encounter Location Date Provider Diagnosis [facility] [address] [place] [address] 02/13/2025 Jeancarlos Fontaine Plan Of Treatment Next Appt Details Provider Name:Jeancarlos Fontaine, 05/14/2025 09:30:00 AM, [address], [address], [place], [address], Progress Notes * Zora PATTONDOB:1960 ([age] yo F)Acc No.[id number]:02/13/2025 LABS Patient: Zora JOHNSON Provider: Radha Fontaine MD :1960 A ge:64 Y S ex:Female Date:02/13/2025 Address:[address], [place] Subjective: * Chief Complaints: * 1 . Labs. * Medical History: Objective: * Vitals: Assessment: Plan: * Treatment: * * Electronic signature of Mikel Fontaine MD FAAP on 05/11/2025 at 07:07 AM EDT Sign off status: Pending * Provider: S tephen Flako Besson, MD Date: 0 02/13/2025 Generated for Rhoda gaviria/Amol/Virgie on: 1 07:07 AM EDT
--- OUTSIDE RECORDS SUMMARY | 2025-05-04 04:59 | XMS_ITS ---
Author Organization [facility] Address [address] [facility] [address] [place] [address] Care Team Providers Care Salad Counter Attendant Name Role Phone Jeancarlos Fontaine Primary Care Provider [phone] REASON FOR VISIT Labs Encounters Encounter Location Date Provider Diagnosis [facility] [address] [facility] [address] [place], [place] [address] 05/04/2025 Jeancarlos Fontaine Hyperlipemia, idiopathic familial E78.5 ; Hypertension, essential I10 and Vitamin D deficiency E55.9 Assessments Encounter Date Diagnosis (ICD Code) Assessment Notes Treatment Notes Treatment Clinical Notes Section Notes 05/04/2025 Hyperlipemia, idiopathic familial (ICD-10 - E78.5) 05/04/2025 Hypertension, essential (ICD-10 - I10) 05/04/2025 Vitamin D deficiency (ICD-10 - E55.9) Plan Of Treatment Pending Test Test Name Order Date M-Complete Blood Count Auto Diff 025 M-Comprehensive Metabolic Panel 05/04/20 25 M-Lipid Panel 05/04/2025 M-Vitamin D 25 Hydroxy 05/04/2025 Next Appt Details Provider Name:Jeancarlos Fontaine, 05/14/2025 09:30:00 AM, [address], [place], [address], Progress Notes * Zora PATTONDOB:1960 (6 5 yo F)Acc No.[id number]:05/04/2025 Patient: Zora JOHNSON :1960 A ge:65 Y S ex:Female [address], [place] [address] Subjective: * Chief Complaints: * L abs * Medical History: * Surgical History: * Hospitalization/Major Diagno stic Procedure: * Medications: Objective: * Vitals: * Physical Examination: Assessment: * Assessment: 1. H yperlipemia, idiopathic familial - E78.5 (Primary) 2 . H ypertension, essential - I10 3 . V itamin D deficiency - E55.9 Plan: * Treatment: 2. H ypertension, essential L AB: M-Complete Blood Count Auto Diff L AB: M-Comprehensive Metabolic Panel L AB: M-Lipid Panel L AB: M-Vitamin D 25 Hydroxy 3. V itamin D deficiency L AB: M-Complete Blood Count Auto Diff L AB: M-Comprehensive Metabolic Panel L AB: M-Lipid Panel L AB: M-Vitamin D 25 Hydroxy * Procedure Codes: * true * Date: Generated for Rhoda gaviria/Amol/eTransmitting on: 1 07:07 AM EDT
--- OUTSIDE RECORDS SUMMARY | 2025-05-11 07:08 | XMS_ITS | Clinical Summary ---
Author Organization [facility] Address [address] [place] [address] Care Team Providers Care Housecleaner Name Role Phone Jeancarlos Fontaine MD Primary Care Provider [phone] Allergies Active Allergy Reactions Criticality Noted Date [...] ANNUAL PHYSICAL 11/16/2016 HEPATITIS C SCREENING 11/16/2016 INFLUENZA VACCINE 02/23/2025 COVID-19 Vaccine ( season) 03/26/202503/2021, 08/02/2020 Insurance [facility] PPO Care Teams Housecleaner Relationship Specialty Start Date End Date Jeancarlos Fontaine MD [address] [place] [address] PCP - General 09/26/15
--- OUTSIDE RECORDS SUMMARY | 2025-05-11 07:08 | XMS_ITS | Patient Health Record ---
Author Organization [facility] PE D JAMES Address [address] [place] [address] Care Team Providers Care Airplane Flight Attendant Supervisor Name Role Phone Jeancarlos Fontaine Primary Care Provider [phone] Mercedez Mello Unavailable [phone] Migration, Provider Unavailable Unavailable Allergies Allergen (clinical [...] blisters Drug Allergy Act adrienne Substance with 1-jwytsqf-0-methylg lutaryl-coenzyme A reductase inhibitor mechanism of action [...] 8.4-10.2 mg/dl LIPID PANEL, STANDARD (7600) Reviewed date:10/14/2024 02:20:52 PM Interpretation: Performing Lab:[facility] [email or web address] [id number] [employer], [place] [id number] Yusef Morales Notes/Report: FASTING: YES FASTING:YES NON-FASTING; NON-FASTING; NON-FASTING; NON-FASTING CHOLESTEROL, TOTAL 154 <200 mg/dL HDL CHOLESTEROL [...] LDL-C. Bipin INTERIANO et al. MANAS. 2013;310(19): 2661-2721 (http://education.Epoxy/faq/UXO896) CHOL/HDLC RATIO 2.9 <5.0 (calc) NON HDL CHOLESTEROL 101 <130 mg/dL (calc) For patients with diabetes plus 1 major ASCVD risk factor, treating to a non-HDL-C goal of <100 mg/dL (LDL-C of <70 mg/dL) is considered a therapeutic option. COMPREHENSIVE METABOLIC PANE L (22352) Reviewed date:10/14/2024 02:20:53 PM Interpretation: Performing Lab:[facility] [email or web address] [id number], [facility] [id number] Yusef Morales Notes/Report: NON-FASTING; NON-FASTING; NON-FASTING; NON-FASTING [...] Reviewed date:10/14/2024 02:20:53 PM Interpretation: Performing Lab:[facility] [id number] [facility] HospitalHyjeLZ[address] Yusef Morales Notes/Report: NON-FASTING; NON-FASTING; NON-FASTING; NON-FASTING [...] MPV 10.4 7.5-12.5 fL ABSOLUTE NEUTROPHILS 1795 0711-7432 cells/uL ABSOLUTE LYMPHOCYTES 3568 646-1432 cells/uL ABSOLUTE MONOCYTES 364 200-950 cells/uL ABSOLUTE EOSINOPHILS 41 15-500 cells/uL ABSOLUTE BASOPHILS 20 0-200 cells/uL NEUTROPHILS 52.8 LYMPHOCYTES 34.7 MONOCYTES 10.7 EOSINOPHILS 1.2 BASOPHILS 0.6 VITAMIN D,25-OH,TOTAL,IA (17 306) Reviewed date:10/14/2024 02:20:53 PM Interpretation: Performing Lab:CB, [facility] [id number], [place] WilsonKyhdFW[address] Yusef Morales Notes/Report: NON-FASTING; NON-FASTING; NON-FASTING; NON-FASTING [...] D, (D2,D3), LC/MS/MS is recommended: order code 40100 (patients >2yrs). See Note 1 Note 1 For additional information, please refer to http://education.Project Colourjack/faq/SII882 (This link is being provided for informational/ educational purposes only.) DEXA Hip and Spine - Screeni ng Reviewed date:10/30/2024 04:02:32 PM Interpretation: Performing Lab: Notes/Report: Mammogram : Bilateral Reviewed date:02/21/2025 02:27:47 PM Interpretation: Performing Lab: Notes/Report: Reason For Referral Reason Needs DEXA scan Diagnosis 1 Vitamin D deficiency (E55.9) Referral Organization [facility] RONNA RAMIREZ Referring Provider First Name Jeancarlos Referring Provider Last Name Minal Referring Provider Speciality Internal M edicine Referred Organization [facility] Referred Address [address] [place] [id number], Referred Provider Specialty Diagnostic R adiology Referral Priority Routine Referral Appointment Date 10/26/2024 Medications Medication SIG (Take, Route, Frequency, Duration) Notes Start Date End Date Status Aspirin 81 MG 1 tab(s) orally once a day; Duration: 30 day(s) Active hydroCHLOROthiazide 25 MG TAKE 1 TABLET BY MOUTH ONCE DAILY; Duration: 30 Active FELIPE RED ONE CAPSULE PO ONCE A DAY Active Metoprolol Succinate ER 50 MG TAKE 1 TAB LET BY MOUTH ONCE DAILY; Duration: 30 days Active Theratears - 1 GTT IN EACH EYE 3- 4 TIMES A DAY Active Mag-200 800 MG 2 TAB(S) ORALLY ONCE A DAY; Duration: 14 DAY(S) Active Vitamin D3 25 MCG (1000 UT) 1 tab(s) ora lly once a day; Duration: 30 day(s) Active Co Q-10 100 MG 1 TAB QD Activ e Tylenol Extra Strength 500 MG 1-2 tabs o rally every 4 hours prn pain; Duration: 5 day(s) Active KONSYL 100% DIRECTED ORALLY ONCE DAILY Active Rosuvastatin Calcium 10 MG TAKE 1 TABLET BY MOUTH ONCE DAILY; Duration: 90 Active PriLOSEC OTC 20 MG 1 tab(s) orally once a day Active Estradiol 0.5 MG 1 tab(s) orally [...] Status W/U Status Risk Notes Problem Hypertension (20183876) Hypertension (401.9) Active confirmed Problem Localized, primary osteoarthritis of the hand (238818497) Primary osteoarthritis, right hand (M19.041) Active confirmed Problem Vitamin D deficiency (84806971) Vitamin D deficiency (E55.9) Active confirmed Problem Hyperlipidemia (57544570) Hyperlipemia, idiopathic familial (E78.5) Active confirmed Problem Gastroesophageal reflux disease (456935589) GERD without esophagitis (K21.9) Active confirmed Problem Essential hypertension (25836373) Hypertension, essential (I10) Active confirmed Problem Adult health examination (440022218) Routine adult health maintenance (Z00.00) Active confirmed Problem Rupture of right rotator cuff (60364869544449441) Rotator cuff syndrome of right shoulder (M75.101) Active confirmed Problem Osteoarthritis of knee (872404020) Primary osteoarthritis of left knee (M17.12) Active confirmed Problem Osteoarthritis of knee (942766937) Primary osteoarthritis of right knee (M17.11) Active confirmed Problem Menopause (667367589) Menopause (Z78.0) Active confirmed Problem Localized, primary osteoarthritis of the hand (177928173) Primary osteoarthritis of left hand (M19.042) Active confirmed Problem Left rotator cuff syndrome (187269370063452) Rotator cuff syndrome of left shoulder (M75.102) Active confirmed Problem Artificial knee joint present (095781856027) Status post total knee replacement, right (Z96.651) Active confirmed Problem Basal cell carcinoma of left lower leg (C44.719) Active confirmed Problem Screening due (086671152) Screening due (Z13.9) Active confirmed Problem Ventricular premature depolarization (422934129) 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) Active confirmed Vital Signs Heart Rate 74 /min 02/19/2025 Temperature 97.6 degrees Fahrenheit 02/19/2025 Blood pressure diastolic 76 mm Hg 02/19/2025 Height 66.5 in 02/19/2025 Blood pressure systolic 138 mm Hg 02/19/2025 Weight 158 lbs 02/19/2025 BMI 25.12 kg/m2 02/19/2025 Encounters Encounter Location Date Provider Diagnosis [facility] [address] [facility] [address] [place] [address] 10/12/2024 Jeancarlos Godfreyanibal [facility] [address] [facility] [address] [place] [address] 10/28/2024 Provider Migration [facility] [address] [facility] [address] [place], [place] [address] 10/18/2024 Jeancarlos Fontaine Hyperlipemia, idiopathic familial E78.5 ; Hypertension, essential I10 ; Vitamin D deficiency E55.9 ; Seborrheic keratosis L82.1 ; Hyponatremia E87.1 ; Encounter for immunization Z23 and Routine medical exam Z00.00 [facility] [address] [facility] [address] [place], [place] [address] 02/19/2025 Jeancarlos Fontaine Hyponatremia E87.1 ; Hypertension, essential I10 and Seborrheic keratoses L82.1 [facility] [address] [place], [place] [address] 10/09/2024 Jeancarlos Fontaine Hyperlipemia, idiopathic familial E78.5 ; Hypertension, essential I10 and Vitamin D deficiency E55.9 [facility] [address] [place] [address] 02/05/2025 Jeancarlos Fontaine Routine adult health maintenance Z00.00 [facility] [address] [place] [address] 02/13/2025 Mercedez Mello Hyponatremia E87.1 [facility] [address] [place] [address] 05/04/2025 Jeancarlos Fontaine Hyperlipemia, idiopathic familial E78.5 ; Hypertension, essential I10 and Vitamin D deficiency E55.9 Assessments Encounter Date Diagnosis (ICD Code) Assessment Notes Treatment Notes Treatment Clinical Notes Section Notes 02/13/2025 Hyponatremia (ICD-10 - E87.1) 05/04/2025 Hyperlipemia, idiopathic familial (ICD-10 - E78.5) 05/04/2025 Hypertension, essential (ICD-10 - I10) 02/19/2025 Hypertension, essential (ICD-10 - I10) She manages her hypertension with HCTZ and metoprolol. Her BP in office was 138/76. She has no concerns at this time. 02/19/2025 Hyponatremia (ICD-10 - E87.1) We discussed her having physiologic hyponatremia likely due to her HCTZ diuretic. We will draw lab values in April to assess her CMP. We discussed replacing one of her (4-5) water drinks a day with electrolyte beverages like propel and gatorade 0. Reviewed labs with patient that we ordered earlier this month. 10/18/2024 Hyperlipemia, idiopathic familial (ICD-10 - E78.5) [...] Routine adult health maintenance (ICD-10 - Z00.00) 10/09/2024 Hyperlipemia, idiopathic familial (ICD-10 - E78.5) 10/09/2024 Hypertension, essential (ICD-10 - I10) 10/09/2024 Vitamin D deficiency (ICD-10 - E55.9) 10/18/2024 Vitamin D deficiency (ICD-10 - E55.9) With low-dose vitamin D replacement her levels are now in the low normal range. No changes in plan 05/04/2025 Vitamin D deficiency (ICD-10 - E55.9) 02/19/2025 Seborrheic keratoses (ICD-10 - L82.1) The papules on her back and chest were consistent with seborrheic keratoses. We discussed applying hydrocortisone ointment to the papules to help with the itchiness and discomfort. 10/18/2024 Seborrheic keratosis (ICD-10 - L82.1) I feel comfortable watching this lesion currently. She will let me know if any changes occur, reviewed the ABCD concept of needing biopsy 10/18/2024 Hyponatremia (ICD-10 - E87.1) Sodium 129. On HCTZ. Will check labs in 4 months. No symptoms of hyponatremia 10/18/2024 Encounter for immunization (ICD-10 - Z23) New 21 valent pneumonia vaccine given 10/18/2024 Routine medical exam (ICD-10 - Z00.00) HRA reviewed. 3/ word recall. Up-to-date with mammograms, follows with [employer] [employer]. Up-to-date with colonoscopies. Does need a DEXA scan, this will be ordered. Depression screening negative. Excellent functional status. Vaccines up-to-date. is healthcare surrogate Plan Of Treatment Pending Test Test Name Order Date Mammogram : Bilateral 10/07/2020 Holter Monitor, 48 hour 05/23/2013 Holter Monitor, 48 hour 01/01/2022 H-CBC with AUTO DIFF 10/05/2017 H-BODY FLUID CULTURE 02/10/2017 H-STREP SCREEN (RAPID) 09/21/2016 H-CMP 10/05/2017 H-LIPID PANEL 10/05/2017 H-LIPID PANEL 03/05/2014 H-VIT D, 25-HYDROXY 04/06/2017 H-VIT D, 25-HYDROXY 10/05/2017 H-VIT D, 25-HYDROXY 10/02/2016 DEXA Hip and Spine - Diagnostic 10/08/19 21 M-Complete Blood Count Auto Diff 025 M-Comprehensive Metabolic Panel 05/04/20 25 M-Lipid Panel 05/04/2025 M-Thyroid Panel 04/25/2018 M-Vitamin B12 04/25/2018 M-Vitamin D 25 Hydroxy 03/26/2021 M-Vitamin D 25 Hydroxy 09/30/2020 M-Vitamin D 25 Hydroxy 04/02/2020 M-Vitamin D 25 Hydroxy 05/04/2025 Mammogram: Screening 01/15/2023 LIPID PANEL, STANDARD (7600) 10/11/2023 COMPREHENSIVE METABOLIC PANEL (05048) MAGNESIUM (622) 10/11/2023 CBC (INCLUDES DIFF/PLT) (6399) TSH (899) 10/11/2023 Future Test Test Name Order Date C-CMP 08/28/2013 C-LIPID PANEL 08/28/2013 C-TSH 08/28/2013 C-CPK 08/28/2013 BASIC METABOLIC PANEL (59292) 02/05/2025 Next Appt Details Provider Name:Jeancarlos Fontaine, 05/14/2025 09:30:00 AM, [address] [facility] [address] [facility], [address], [place], [address], Insurance Providers Payer Name Payer Address Payer Phone Subscriber Number Group Number Insured Name Patient Relationship to Insured Coverage Start Date Coverage End Date [employer] [address] [address] [place] [address] [phone] [id number] Zora Bloom Self - patient is the [...] 10/2018 -normal yearly m ammograms last on 01/2025 Vitamin D deficiency E55.9 Surgical History Surgery [...] Reason Date(Month/Year) total right knee replacement 10/08/2015 Gastroenterisis/Dehydration 2003 All above surgeries
--- OUTSIDE RECORDS SUMMARY | 2025-05-11 07:08 | XMS_ITS | Clinical Summary ---
Author Organization Healthcare Address [address] [place] [address] Care Team Providers Care Car Rental Service Attendant Name Role Phone Jeancarlos Fontaine MD Primary Care Provider + [phone] Family History Medical History Relation Name Comments [...] of Treatment Not on file Care Teams Car Rental Service Attendant Relationship Specialty Start Date End Date Jeancarlos Fontaine MD [address] [place] [address] [place] [address] PCP - General 12/06/20
[2025-05-11 07:27] LABS: Hematocrit 39.8 % (37.0-47.0); Hemoglobin 13.4 g/dL (12.2-16.2); Immature Granulocytes % 0.3 %; Mean Corpuscular HGB Conc 33.7 g/dL (31.8-35.4); Mean Corpuscular Hemoglobin 31.5 pg (27.0-31.2); Mean Corpuscular Volume 93.6 fl (81-99); Nucleated Red Blood Cells % 0 %; Platelet Count 223 K/mm3 (142-424); Red Blood Count 4.25 M/mm3 (4.20-5.40); Red Cell Distribution Width-SD 41.1 fL; White Blood Count 3.7 K/mm3 (4.8-10.8)
[2025-05-11 08:22] LABS: Albumin Level 4.2 g/dl (3.5-5.0); Chloride 96 mmol/L (98-107); Sodium 135 mmol/L (136-145)
[2025-05-11 08:23] LABS: Potassium 3.9 mmoL/L (3.5-5.1)
[2025-05-11 08:25] LABS: Alanine Aminotransferase 21 U/L (12-78); Albumin/Globulin Ratio 1.3 (1.1-1.8); Alkaline Phosphatase 48 U/L (38-126); Anion Gap 10.9 mEq/L (5-15); Aspartate Amino Transferase 32 U/L (14-36); Bilirubin,Total 0.5 mg/dl (0.2-1.3); Blood Urea Nitrogen 14 mg/dl (7-17); Calcium 9.4 mg/dl (8.4-10.2); Carbon Dioxide 32 mmol/L (22.0-30.0); Cholesterol 138 mg/dl (140-200); Creatinine,Serum 0.70 mg/dl (0.52-1.04); Estimated Glomerular Filt Rate 83 ml/min (>60); GFR (African American) 101 ML/MIN (>60); Globulin 3.3 g/dL (1.3-3.2); Glucose 87 mg/dl (74-100); Total Protein,Serum 7.5 g/dl (6.3-8.2); Triglycerides 92 mg/dl (30-150)
[2025-05-11 08:26] LABS: HDL Cholesterol 49 mg/dl (40-60)
[2025-05-11 08:45] LABS: 25-OH Vitamin D, Total 46.3 ng/mL (30-100)
== END 2025-05-11 23:59 | disposition home or self-care (01) ==
LOC: LAB 07:05
PROVIDERS: PCP Internal Medicine Adolescent Medicine; Visit Provider Internal Medicine Adolescent Medicine
DX: E78.5 Hyperlipidemia, unspecified (principal); E55.9 Vitamin D deficiency, unspecified; I10 Essential (primary) hypertension
CPT/HCPCS: 36415; 80053; 80061; 82306; 85025